=== PATIENT | male | born 1960 | race Caucasian/White ===

== ENCOUNTER 2017-07-29 00:18 | Inpatient (IN) | payer MEDICAID ==
[~2017-07-29] VITALS: Ht 177.8 cm; Wt 88.9 kg
[2017-07-29] VITALS (52 sets, daily range): BP systolic 91–202; BP diastolic 43–114
[~2017-07-29 00:18] MED LIST: ACET-868 PO; AMLO2.5T PO; BISA10SU8 RC; INSU100I19 SQ; INSU100V3 SQ; LEVO500T15 PO; LISI40TA4 PO; MAGN400O6 PO; METO25TA6 PO; VANC1VIA2 IV
--- NOTE | 2017-07-29 00:20 | NUR ---
TO BED 7 A A57 YO MALE PT BIBA#102 C/O SOB X 1 DAY, PT WAS GIVEN 5 SPRAYS OF NITRO FOR HIGH BP PSYCHIATRY ADULT PHYSICIAN. PATIENT IS AAOX4, 94% ON ROOM AIR, RR AT 24. KEPT HOB ELEVATED. PLACED ON CARDIAC AND VS MONITORING. GOWNED. COMFORT MEASURES RENDERED.
[2017-07-29] MEDS ORDERED: NITROGLYCERIN PACKET 1 GM PACKET TD ONE (00:30)
[2017-07-29] MEDS ORDERED: ENALAPRILAT DIHYD. (2.5MG/ML) 1.25 MG/ML VIAL IV ONE ×2 (00:30→00:40)
[2017-07-29] MEDS ORDERED: FUROSEMIDE 40 MG/4 ML VIAL IV ONE ×2 (00:30→05:30)
--- NOTE | 2017-07-29 00:35 | NUR ---
STARTED A SALINE LOCK ON THE LEFT HAND G20.
[2017-07-29] MEDS ORDERED: FUROSEMIDE 40 MG/4 ML VIAL ONE ×2 (00:40→05:04)
[2017-07-29] MEDS ORDERED: NITROGLYCERIN PACKET 1 GM PACKET ONE (00:40)
--- NOTE | 2017-07-29 00:45 | NUR ---
MEDICATED PATIENT ORDERED BY DR BOJORQUEZ.
[2017-07-29 01:11] LABS: BASOPHILS # (AUTO) 0.1 /CMM (0.0-0.2); BASOPHILS % (AUTO) 0.6 % (0.0-2.0); HEMATOCRIT 25 % (39-51); HEMOGLOBIN 8.1 g/dL (13.5-17.5); LYMPHOCYTES # (AUTO) 0.8 /CMM (0.8-4.8); LYMPHOCYTES % (AUTO) 5.6 % (20.0-44.0); MEAN CORPUSCULAR HEMOGLOBIN 29 PG (26.0-33.0); MEAN CORPUSCULAR HGB CONC 32 g/dl (31.0-36.0); MEAN CORPUSCULAR VOLUME 89 fL (80-96); MONOCYTES # (AUTO) 0.3 /CMM (0.1-1.30); MONOCYTES % (AUTO) 2.1 % (2.0-12.0); NEUTROPHILS # (AUTO) 12.8 /CMM (1.8-8.9); NEUTROPHILS % (AUTO) 91.7 % (43.0-81.0); PLATELET COUNT (AUTO) 490 /CMM (150-450); RDW COEFFICIENT OF VARIATION 14.5 (11.5-15.0); RED BLOOD CELL COUNT(AUTO) 2.83 MIL/uL (4.5-6.0); WHITE BLOOD COUNT (AUTO) 13.9 K/uL (4.3-11.0)
[2017-07-29 01:22] LABS: CALCIUM, SERUM 8.6 mg/dL (8.5-10.1)
[2017-07-29 01:28] LABS: INR 1.06 (0.87-1.13); PROTHROMBIN TIME 11.4 SECS (9.5-12.7)
[2017-07-29 01:29] LABS: TROPONIN I 0.358 ng/mL (0.00-0.056)
[2017-07-29 01:37] LABS: ALBUMIN 2.9 g/dL (3.4-5.0); BILIRUBIN,DIRECT 0.1 mg/dL (0.0-0.2); BILIRUBIN,TOTAL 0.4 mg/dL (0.2-1.0); TOTAL PROTEIN, SERUM 8.2 g/dL (6.4-8.2)
[2017-07-29] MEDS ORDERED: LEVOFLOXACIN 500 MG /D5W 100ML 500 MG/100 ML PIGGYBACK IV ONE (02:30)
[2017-07-29] MEDS ORDERED: LEVOFLOXACIN 500 MG /D5W 100ML 0 ML IV ONE (02:36)
[2017-07-29] MEDS ORDERED: VALS1TAB2 PO (02:46)
[2017-07-29] MEDS ORDERED: CLON0.3T PO (02:46)
[2017-07-29] MEDS ORDERED: ZOLP10TA6 PO (02:46)
[2017-07-29] MEDS ORDERED: INSU100I26 SQ (02:46)
[2017-07-29] MEDS ORDERED: GABA600T2 PO (02:46)
[2017-07-29] MEDS ORDERED: ASPIRIN 81 MG TAB.CHEW ONE (02:53)
[2017-07-29] MEDS ORDERED: ASPIRIN 81 MG TAB.CHEW PO ONE (03:00)
--- NOTE | 2017-07-29 03:36 | NUR ---
REPORT GIVEN TO [facility] FOR ROOM 313-2 ADMISSION AND JIMBO.
[2017-07-29 03:44] LABS: LYMPHOCYTES % (MANUAL) 4 % (16-48); MONOCYTES % (MANUAL) 3 % (0-11.0); NEUTROPHILS % (MANUAL) 93 (42-76)
--- NOTE | 2017-07-29 03:58 | NUR ---
TRANSFERRED PATIENT TO TELE BED 313 VIA ALS PROTOCOL, NO INCIDENT NOTED.
--- NOTE | 2017-07-29 04:00 | NUR ---
TELE/RETAIL CLIENT SOLUTIONS ANALYST ADMITTED 57 YEARS OLD MALE PT FROM ER VIA GURNEY ACCOMPANIED BY ER MALE STAFF AND ALSO WITH PT'S . DX; ACUTE RENAL FAILURE. PT AWAKE, ALERT AND ORIENTED AND SAID CAN NOT BREATH AND ANXIOUS. PT WITH O2 4L NC ON . PLACED ON TELEMETRY. COUGHING WITH WHITISH PHLEGM. NOTED WITH WOUND ON BACK OF BOTH FEET. BOTH FEET ARE ALSO SWOLLEN. CHARGE NURSE MADE AWARE PT IS ANXIOUS SO WITH THE AND KEPT SAYING CAN NOT BREATH. ALSO INFORMED BP IS HIGH 192/112, HR 112.
[2017-07-29] MEDS ORDERED: CLONIDINE HCL 0.1 MG TABLET PO PRN (04:30)
[2017-07-29] MEDS ORDERED: CLONIDINE HCL 0.1 MG TABLET ONE (04:34)
--- NOTE | 2017-07-29 04:45 | NUR ---
TELE/PRACTICE CLINICIAN; AT 0442 CATAPRES 0.1 MG PO Q6 PRN GIVEN.
--- NOTE | 2017-07-29 04:55 | NUR ---
TELE/ACCOUNTS RECEIVABLE EXECUTIVE; PLACED A CALL TO DR JALLOH PT IS C/O CAN NOT BREATH AND ANXIOUS. DR. JALLOH WITH ORDERS AND CARRIED OUT.
--- NOTE | 2017-07-29 05:05 | NUR ---
TELE/NURSERY RN; PLACED A CALL AGAIN TO DR. JALLOH IF PT BE TRANSFERRED TO [facility]. DR. JALLOH OK TO TRANSFER TO [facility] GARRY SARAH SOME ORDERS. CHARGE NURSE INFORMED THAT PPT BE TRANSFERRED TO [facility].
--- NOTE | 2017-07-29 05:08 | NUR ---
lasix 40 mg iv given at this time per md order
[2017-07-29] MEDS ORDERED: IPRATROPIUM NEB FS 0.5 MG/2.5 ML AMPUL.NEB ONE (05:25)
[2017-07-29] MEDS ORDERED: FUROSEMIDE 40 MG/4 ML VIAL IV SCH (05:30)
[2017-07-29] MEDS ORDERED: LEVALBUTEROL HCL NEB 1.25 MG/0.5 ML VIAL.NEB NEB PRN (05:30)
[2017-07-29] MEDS ORDERED: IPRATROPIUM NEB FS 0.5 MG/2.5 ML AMPUL.NEB NEB PRN (05:30)
--- NOTE | 2017-07-29 05:40 | NUR ---
PT TRANSFERRED TO [facility] BY BED. REPORTS GIVEN TO ARLEN WITH DR. YEIMI DUARTE. ALSO I INFORMED MADI MCKINLEY THAT I WAS NOT ABLE TO TAKE THE PHOTOS OF THE WOUND.
[2017-07-29] MEDS: CARVEDILOL 12.5 MG TABLET PO SCH ×3 (06:00→21:11)
[2017-07-29] MEDS ORDERED: AMLODIPINE BESYLATE 10 MG TABLET ONE (06:16)
[2017-07-29] MEDS ORDERED: ATORVASTATIN 10 MG TABLET ONE (06:16)
[2017-07-29] MEDS: ATORVASTATIN 10 MG TABLET PO SCH ×2 (06:17→21:11)
[2017-07-29] MEDS ORDERED: LEVOFLOXACIN 500 MG /D5W 100ML 100 ML IV ONE (06:26)
[2017-07-29] MEDS ORDERED: LEVOFLOXACIN 500 MG /D5W 100ML 500 MG in PREMIX 1 EA IV SCH (06:30)
[2017-07-29] MEDS ORDERED: AMLODIPINE BESYLATE 10 MG TABLET PO ONE (06:30)
[2017-07-29] MEDS ORDERED: DEXTROSE 50%-WATER 50 ML DISP.SYRIN IV PRN (06:30)
[2017-07-29] MEDS: INSULIN DETEMIR 100 UNIT/ML CARTRIDGE SQ SCH ×2 (06:30→21:17)
[2017-07-29] MEDS: TAMSULOSIN 0.4 MG CAP.SR.24H PO SCH ×2 (06:30→21:11)
[2017-07-29] MEDS ORDERED: ALPRAZOLAM 0.25 MG TABLET PO PRN (06:30)
[2017-07-29] MEDS ORDERED: HEPARIN SODIUM, PORCINE 5000 UNITS/1 ML VIAL SQ SCH (06:30)
[2017-07-29] MEDS: BLOOD SUGAR DIAGNOSTIC 1 EACH STRIP VI SCH ×4 (06:44→21:16)
--- NOTE | 2017-07-29 06:59 | NUR ---
RN NOTE; PT HOME MEDS TO RESUME, CLARIFIED WITH DR SCHEDULED FOR HS .
[2017-07-29 07:01] LABS: HEMATOCRIT 27 % (39-51); HEMOGLOBIN 8.9 g/dL (13.5-17.5); LYMPHOCYTES # (AUTO) 0.4 /CMM (0.8-4.8); LYMPHOCYTES % (AUTO) 2.6 % (20.0-44.0); MEAN CORPUSCULAR HEMOGLOBIN 29 PG (26.0-33.0); MEAN CORPUSCULAR HGB CONC 33 g/dl (31.0-36.0); MEAN CORPUSCULAR VOLUME 90 fL (80-96); MONOCYTES # (AUTO) 0.4 /CMM (0.1-1.30); MONOCYTES % (AUTO) 2.4 % (2.0-12.0); NEUTROPHILS # (AUTO) 14.3 /CMM (1.8-8.9); PLATELET COUNT (AUTO) 498 /CMM (150-450); RDW COEFFICIENT OF VARIATION 14.5 (11.5-15.0); RED BLOOD CELL COUNT(AUTO) 3.05 MIL/uL (4.5-6.0); WHITE BLOOD COUNT (AUTO) 15.1 K/uL (4.3-11.0)
[2017-07-29 07:37] LABS: CALCIUM, SERUM 8.6 mg/dL (8.5-10.1); CREATININE 6.2 mg/dL (0.6-1.3); POTASSIUM 5.2 mmol/L (3.5-5.1)
[2017-07-29 07:40] LABS: TROPONIN I 1.154 ng/mL (0.00-0.056)
--- NOTE | 2017-07-29 07:46 | NUR ---
maddie rn note patient in bed. c\o sob on nc 5l sat 94% . feels anxious. called rt for breathing tx , on tele monitor 112 with ortega cath to gravity with yellow color urine rt hand hl intact no s\s infection noted , bed in lowest and locked position , call light within reach , plan of care discussed with patient ,will cont to monitor closely at bedside ,
--- NOTE | 2017-07-29 08:00 | NUR ---
[facility] RN NOTE PATIENT IN BED , AT BEDSIDE. ON 5L NC SAT 94%. WITH LABORED RESPIRATION. KEEP HOB ELEVATED AT ALL TIME , ON TELE MONITOR SR 113. WITH DÍAZ CATH TO GRAVITY WITH YELLOW COLOR URINE , RT HAND HL INTACT,NO S]S INFECTION OR INFILTRATION NOTED , BED IN LOWEST AND LOCKED POSITION , CALL LIGHT WITHIN REACH , FEELS ANXIOUS AND RESTLESS , ALL NEEDS ATTENDED , CALL RT FOR BREATHING TX WILL CONT TO MONITOR CLOSELY
--- NOTE | 2017-07-29 08:11 | NUR ---
RN NOTE; A 57 YRS OLD MALE PT ADMITTED AND TRANSFERRED FROM [address] FLOOR WITH THE DX OF ACUTE RENAL FAILURE . PT IS A.O X 3, ANXIOUS , BREATHING LABORED ON 5 LPM VIA NC . O2 SATURATION 94 % . LH 20 G PERIPHERAL IV INTACT AND PATENT . BLADDER SCAN SHOWS 750 ML URINE RETAINING , COUDET CATHETER INSERTED PER DR JALLOH ORDER AND NOTICED URINE OUTPUT 900 ML. PT BP NOTICED HIGH , PRN MEDS GIVEN PER ORDER. FAMILY AT THE BED SIDE. SAFETY MEASURES APPLIED. DR JALLOH AWARE OF ALL LABS RESULT . ENDORSED TO NEXT SHIFT RN FOR CONTINUITY OF CARE.
[2017-07-29 08:13] LABS: ABG BASE EXCESS -10.5 mmol/L; ABG OXYGEN SATURATION 93.2 % (92.0-98.5); ABG PCO2 30.4 mmHg (35.0-45.0); ABG PH 7.305 (7.350-7.450); ABG PO2 71.3 mmHg (75.0-100.0); AaDO2 178.9 mmHg; COHb 0.6 % (0.5-1.5); MetHb 0.3 % (0.0-1.5); O2Hb 92.4 % (94.0-97.0); SITE, ABG Right Brachial; VENT MODE, BG NASAL CANNULA
[2017-07-29] MEDS ORDERED: BUMETANIDE INJ 4 MG in IV D5W 24 ML IV ONE (08:30)
[2017-07-29] MEDS ORDERED: NTG 50 MG/D5W250 ML BOTTL 250 ML IV PRN ×2 (08:30→10:00)
[2017-07-29] MEDS ORDERED: ALBUTEROL FS 2.5 MG/0.5 ML VIAL.NEB NEB PRN (08:30)
--- NOTE | 2017-07-29 08:30 | NUR ---
[facility] RN NOTE WITH LABORED RESPIRATION ABG DONE PER MD ORDER
--- NOTE | 2017-07-29 08:40 | NUR ---
[facility] RN NOTE STILL WITH LABORED RESPIRATION DR CODY AND DR SHARMA AT BEDSIDE NOTIFIED THAT BNP 45074 BUN 73 CREATINE 6.2 ALSO TROPNIN1.154 ,NOTIFIED TO DR SHARMA THAT PATIENT HAS CRACKLES UPON AUSCULTATION, CHEST RAY DONE WITH PULMONARY EDEMA , BP 202/114 ORDERED TO TRANSFER TO ICU WITH POSSIBLE BIPAP, ORDER CARRIED OUT
--- NOTE | 2017-07-29 08:45 | NUR ---
[facility] RN NOTE TRANSFERRED TO ICU ORDERED BY ACLS PROTOCOL ON ,REPORT GIVEN TO STAN BARRAZA
--- NOTE | 2017-07-29 08:45 | NUR ---
RN INITIAL NOTES RECEIVED PT FROM [facility] VIA BED. AWAKE, A/OX3-4. NOTED WITH SOB. DENIES ANY PAIN. PLACED COMFORTABLY IN THE ROOM. HOB ELEVATED. PLACED ON BIPAP ORDERED. PT CONNECTED TO BEDSIDE MONITOR. RH #[address] FLUSHED WITH NS. FC IN PLACE. NO HEMATURIA NOTED. DR. JALLOH AWARE OF TRANSFER. PT ORIENTED TO ROOM AND USE OF CALL LIGHT. AT BEDSIDE. AWAITING FOR ORDERS. WILL CLOSELY MONITOR.
[2017-07-29] MEDS: ASPIRIN EC 81 MG TABLET.DR PO SCH (08:48)
[2017-07-29] MEDS: AMLODIPINE BESYLATE 10 MG TABLET PO SCH (08:49)
[2017-07-29] MEDS: hydrALAZINE HCL 50 MG TABLET PO SCH ×3 (08:50→16:53)
[2017-07-29] MEDS: HEPARIN SODIUM, PORCINE 5000 UNITS/1 ML VIAL SQ SCH ×2 (08:52→21:12)
[2017-07-29] MEDS: CLONIDINE HCL 0.1 MG TABLET PO SCH ×2 (09:12→16:53)
[2017-07-29] MEDS: MEROPENEM 500 MG in IV NS 0.9% 50 ML IV SCH ×2 (09:12→16:52)
--- NOTE | 2017-07-29 11:27 | NUR ---
RN NOTES PT REFUSING BIPAP. WANTS TO TAKE IT OFF. RR 14, 02 SAT 98%. PT PLACED ON 02 AT 5LPM VIA NC. HOB ELEVATED. 02 SAT 96%. WILL MONITOR. DR. JALLOH AWARE.
[2017-07-29] MEDS ORDERED: ONDANSETRON HCL/PF 4 MG/2 ML VIAL IV PRN (12:00)
--- NOTE | 2017-07-29 13:45 | NUR ---
PT CONTINUES TO BE COMFORTABLE OFF BIPAP. ZERO DISTRESS NOTED ON LOW FLOW SUPPLEMENTAL OXYGEN
[2017-07-29] MEDS: GABAPENTIN 300 MG CAPSULE PO SCH (16:52)
[2017-07-29] MEDS: INSULIN REGULAR, HUMAN 100 UNIT/ML 3 ML VIAL SQ PRN (17:09)
--- NOTE | 2017-07-29 18:44 | NUR ---
RN CLOSING NOTES PT REMAINS STABLE. ON 02 AT 5LPM VIA NC. NO RESPIRATORY DISTRESS NOTED. DENIES SOB. DENIES ANY PAIN. BP WNL. IV LINES IN PLACE. FC IN PLACE. TX PROVIDED ORDERED. KEPT CLEAN AND DRY. ASSISTED ON REPOSITIONING. ALL NEEDS ATTENDED AND MET. CALL LIGHT WITHIN REACH. WILL ENDORSE FOR CONTINUITY OF CARE.
--- NOTE | 2017-07-29 20:38 | NUR ---
received pt from day shift, alert, follows commands, SR, SB, on 5L 02 sat well, lungs partially congested, BLLE pitting edema and cellulitis, tolerates diet, f/c good output, v/s stable, no pain, pt turned and repositioned.
[2017-07-29] MEDS ORDERED: INSULIN DETEMIR 100 UNIT/ML CARTRIDGE SQ SCH (22:00)
[2017-07-30] VITALS (41 sets, daily range): BP systolic 106–144; BP diastolic 40–79
--- NOTE | 2017-07-30 00:48 | NUR ---
pt is resting in the bed, v/s stable, no pain, pt turned and repositioned q2hrs.
[2017-07-30] MEDS: MEROPENEM 500 MG in IV NS 0.9% 50 ML IV SCH ×3 (00:57→16:51)
--- NOTE | 2017-07-30 04:17 | NUR ---
pt is resting in the bed, alert, follows commands, SR, v/s stable, no pain, pt cleaned, changed and repositioned q2hrs.
[2017-07-30 05:08] LABS: BASOPHILS % (AUTO) 0.1 % (0.0-2.0); HEMATOCRIT 21 % (39-51); LYMPHOCYTES # (AUTO) 0.7 /CMM (0.8-4.8); LYMPHOCYTES % (AUTO) 6.5 % (20.0-44.0); MEAN CORPUSCULAR HEMOGLOBIN 29 PG (26.0-33.0); MEAN CORPUSCULAR HGB CONC 32 g/dl (31.0-36.0); MEAN CORPUSCULAR VOLUME 91 fL (80-96); MONOCYTES # (AUTO) 0.9 /CMM (0.1-1.30); MONOCYTES % (AUTO) 7.8 % (2.0-12.0); NEUTROPHILS # (AUTO) 9.9 /CMM (1.8-8.9); NEUTROPHILS % (AUTO) 85.6 % (43.0-81.0); PLATELET COUNT (AUTO) 332 /CMM (150-450); RDW COEFFICIENT OF VARIATION 14.9 (11.5-15.0); RED BLOOD CELL COUNT(AUTO) 2.29 MIL/uL (4.5-6.0); WHITE BLOOD COUNT (AUTO) 11.5 K/uL (4.3-11.0)
[2017-07-30 05:16] LABS: HEMOGLOBIN 6.7 g/dL (13.5-17.5)
[2017-07-30 05:17] LABS: ALBUMIN 2.5 g/dL (3.4-5.0); BILIRUBIN,TOTAL 0.2 mg/dL (0.2-1.0); CALCIUM, SERUM 8.6 mg/dL (8.5-10.1); MAGNESIUM 2.1 mg/dL (1.8-2.4); POTASSIUM 5.5 mmol/L (3.5-5.1)
[2017-07-30 05:42] LABS: BAND % (MANUAL) 1 % (0.0-5.0); EOSINOPHILS % (MANUAL) 1 % (0-4); LYMPHOCYTES % (MANUAL) 6 % (16-48); MONOCYTES % (MANUAL) 3 % (0-11.0); NEUTROPHILS % (MANUAL) 89 (42-76); PHOSPHORUS 8.5 mg/dL (2.5-4.9)
[2017-07-30 05:44] LABS: TROPONIN I 4.157 ng/mL (0.00-0.056)
--- NOTE | 2017-07-30 05:50 | NUR ---
H/H 6.05/25 Dr Martin called
--- NOTE | 2017-07-30 06:25 | NUR ---
Second call for Dr Mratin
--- NOTE | 2017-07-30 07:30 | NUR ---
ICU/RN: Pt received in bed, eyes closed, easily aroused by name and touch, A&Ox3 with periods of forgetfulness, breathing even and unlabored on O2 5L/min via NC, skin is pale, generalized edema noted; cellulitis on bilat lower ext with wound on heels. Blood glucose check 113 mg/dl. Pt c/o poor appetite. FC draining clear yellow urine to gravity. Alarm sounds audible. Will cont to monitor pt.
[2017-07-30] MEDS: BLOOD SUGAR DIAGNOSTIC 1 EACH STRIP VI SCH ×4 (07:50→21:21)
--- NOTE | 2017-07-30 07:50 | NUR ---
ICU/RN: Dr Michel rounds; updated on pt status, troponin, and other abn labs. New orders noted and carried out.
[2017-07-30] MEDS: CARVEDILOL 12.5 MG TABLET PO SCH ×2 (08:13→21:21)
[2017-07-30] MEDS: hydrALAZINE HCL 50 MG TABLET PO SCH ×3 (08:13→17:00)
[2017-07-30] MEDS: AMLODIPINE BESYLATE 10 MG TABLET PO SCH (08:13)
[2017-07-30] MEDS: ASPIRIN EC 81 MG TABLET.DR PO SCH (08:13)
[2017-07-30] MEDS: GABAPENTIN 300 MG CAPSULE PO SCH ×2 (08:13→16:51)
[2017-07-30] MEDS: CLONIDINE HCL 0.1 MG TABLET PO SCH ×2 (08:14→16:50)
[2017-07-30] MEDS: HEPARIN SODIUM, PORCINE 5000 UNITS/1 ML VIAL SQ SCH ×3 (08:17→21:23)
--- NOTE | 2017-07-30 08:45 | NUR ---
ICU/RN: Dr Martin at bedside; discussed abn labs, troponins, urine output, respiratory status, poor po intake and respiratory status with MD. New orders noted and carried out. Per MD "Go ahead and give the heparin, there is no active bleed. Administer Lasix after giving the 1st unit of blood." Pt updated on POC, agreeable and verbalized understanding.
--- NOTE | 2017-07-30 09:00 | NUR ---
ICU/RN: Dr Longoria at bedside; updated on pt status. Pt off bipap since yesterday; currently on 2L/Min O2 via NC with SpO2 98-100% at rest.
--- NOTE | 2017-07-30 09:25 | NUR ---
WOUND CARE CONSULT: PT PRESENTS WITH BILATERAL FOOT ULCERS, PRESENT ON ADMISSION. RECOMMENDATIONS MADE FOR WOUND CARE AND SKIN PROTECTION. RECOMMEND PODIATRY CONSULT. DISCUSSED WITH NURSING STAFF. CURRENT OPAL SCORE IS 18. PT ON COMFORT GEL MATTRESS. ALL SKIN PROTECTION MEASURES IN PLACE. WILL SEE PRN. DESIR IN AGREEMENT WITH PLAN OF CARE. Addendum: 07/30/17 at 0926 by PERCY CHAMPION WNDNU Amended: Links added.
[2017-07-30] MEDS: Z GUARD REMEDY 2 OZ OINT TP SCH (09:50)
[2017-07-30] MEDS: FUROSEMIDE 40 MG/4 ML VIAL IV SCH ×2 (11:12→16:51)
[2017-07-30] MEDS: CADEXOMER IODINE 40 GM TUBE TP SCH (11:13)
[2017-07-30 12:02] LABS: HEMOGLOBIN 7.5 g/dL (13.5-17.5)
--- NOTE | 2017-07-30 13:00 | NUR ---
ICU/RN: Pt with refusing lunch earlier. Educated. Now agreed to small sips of juice and water with PO meds.
[2017-07-30] MEDS: SEVELAMER CARBONATE 800 MG TABLET PO SCH ×2 (13:07→18:00)
[2017-07-30] MEDS: ACETAMINOPHEN 325 MG TABLET PO PRN (15:03)
--- NOTE | 2017-07-30 15:30 | NUR ---
ICU/RN: Pt c/o lower back pain 03/14 requesting tylenol. Offered to turn and reposition for comfort and wound prevention, pt strongly refuses and states "No, I want to lay on my back only." Pt at risk for skin breakdown. Per , pt uses air mattress at home. Applied KCI mattress.
[2017-07-30 16:46] LABS: APPEARANCE,URINE CLEAR (CLEAR); BILIRUBIN,URINE NEGATIVE (NEGATIVE); BLOOD, URINE 3+ Ery/uL (NEGATIVE); COLOR,URINE YELLOW (YELLOW); CREATININE, URINE 97.9 MG/DL (30.0-125.0); KETONES,URINE NEGATIVE (NEGATIVE); LEUKOCYTE ESTERASE ,URINE NEGATIVE (NEGATIVE); NITRITE, URINE NEGATIVE (NEGATIVE); PROTEIN,URINE 2+ mg/dl (NEGATIVE); UGLUCOSE NEGATIVE (NEGATIVE); URINE TOTAL PROTEIN 279.4 mg/dL (0-11.9); UROBILINOGEN,URINE 0.2 EU/dL (0.2)
--- NOTE | 2017-07-30 18:14 | NUR ---
ICU/RN: Pt refusing to eat dinner, take po meds despite education. States "leave me alone, that's enough for now. Let me sleep."
--- NOTE | 2017-07-30 19:05 | NUR ---
ICU/RN: Pt resting in bed eyes closed, responds to name and light touch. Refuses turning and dinner at this time. Tolerating O2 at 2L/min via NC. VS WNL. No distress noted. FC draining to gravity. Care endorsed to PM RN for JIMBO.
--- NOTE | 2017-07-30 19:37 | NUR ---
PAYROLL MASTER NOTES RECEIVED PT IN BED, SLEEPING. A/O X2-3 WITH OCCASIONAL CONFUSION. TELE READS SR AT 64 BPM. ON NC AT 2 LPM, LIANE WELL. DÍAZ CATH PRESENT, WITH SMALL AMOUNT OF URINE OUTPUT, APPROX 20 ML SINCE 1800. SAÚL MIDLINE, LEFT HAND 20G AND R AC 20G IVs PRESENT, ALL SALINE LOCKED. ON KCI MATTRESS, PT REFUSING TO BE TURNED AND REPOSITIONED. BLE CELLULITIS AND DM ULCERS PRESENT. CALL LIGHT WITHIN REACH, ALL NEEDS MET.
[2017-07-30] MEDS: TAMSULOSIN 0.4 MG CAP.SR.24H PO SCH (21:21)
[2017-07-30] MEDS: ATORVASTATIN 10 MG TABLET PO SCH (21:21)
[2017-07-30] MEDS: INSULIN DETEMIR 100 UNIT/ML CARTRIDGE SQ SCH (21:21)
--- NOTE | 2017-07-30 21:29 | NUR ---
SENSOR OPERATOR NOTES PT BLOOD GLUCOSE OF 134 MG/DL. DID NOT ADMINISTER LEVEMIR AND REGULAR INSULIN DUE TO THE FACT THAT THE PATIENT HAS NOT BEEN EATING.
[2017-07-30 22:18] LABS: BACTERIA,URINE Few /HPF (None Seen); SQUAMOUS EPITHELIAL CELL,UR Few /HPF (None Seen); WBC,URINE 0-2 /HPF (0-3)
[2017-07-30 22:19] LABS: EOSINOPHIL,URINE None Seen
[2017-07-31] VITALS (39 sets, daily range): BP systolic 100–144; BP diastolic 54–82
[2017-07-31] MEDS: MEROPENEM 500 MG in IV NS 0.9% 50 ML IV SCH ×3 (00:21→16:39)
--- NOTE | 2017-07-31 00:41 | NUR ---
HOTEL VALET ATTENDANT NOTES PT IS ASLEEP, EASILY AROUSABLE. HAS BEEN REFUSING TO BE TURNED AND REPOSITIONED THROUGHOUT THE NIGHT. EDUCATION PROVIDED REGARDING SKIN CARE BUT PT CONTINUES TO REFUSE. REFUSES BED BATH AND LINEN CHANGE UNLESS THE LINENS ARE SOILED.
[2017-07-31 04:53] LABS: BASOPHILS % (AUTO) 0.1 % (0.0-2.0); HEMATOCRIT 26 % (39-51); HEMOGLOBIN 8.4 g/dL (13.5-17.5); LYMPHOCYTES # (AUTO) 1.1 /CMM (0.8-4.8); LYMPHOCYTES % (AUTO) 7.7 % (20.0-44.0); MEAN CORPUSCULAR HEMOGLOBIN 29 PG (26.0-33.0); MEAN CORPUSCULAR HGB CONC 33 g/dl (31.0-36.0); MEAN CORPUSCULAR VOLUME 90 fL (80-96); MONOCYTES % (AUTO) 7.7 % (2.0-12.0); NEUTROPHILS # (AUTO) 11.6 /CMM (1.8-8.9); NEUTROPHILS % (AUTO) 84.5 % (43.0-81.0); PLATELET COUNT (AUTO) 338 /CMM (150-450); RDW COEFFICIENT OF VARIATION 14.9 (11.5-15.0); RED BLOOD CELL COUNT(AUTO) 2.88 MIL/uL (4.5-6.0); WHITE BLOOD COUNT (AUTO) 13.7 K/uL (4.3-11.0)
[2017-07-31 05:33] LABS: ALBUMIN 2.3 g/dL (3.4-5.0); BILIRUBIN,TOTAL 0.3 mg/dL (0.2-1.0); CALCIUM, SERUM 7.9 mg/dL (8.5-10.1); MAGNESIUM 2.2 mg/dL (1.8-2.4); POTASSIUM 5.6 mmol/L (3.5-5.1); TOTAL PROTEIN, SERUM 6.2 g/dL (6.4-8.2)
--- NOTE | 2017-07-31 05:38 | NUR ---
IC DESIGNER GATE ARRAYS NOTES PT CONTINUES TO REFUSES TURNING AND BED BATH. ALL NEEDS MET. CALL LIGHT WITHIN REACH.
[2017-07-31 06:00] LABS: TROPONIN I 2.594 ng/mL (0.00-0.056)
[2017-07-31 06:01] LABS: CREATININE 7.7 mg/dL (0.6-1.3); PHOSPHORUS 8.8 mg/dL (2.5-4.9)
--- NOTE | 2017-07-31 07:30 | NUR ---
RN NOTES RECEIVED PT RESTING IN BED, ASLEEP AT THIS TIME. EASILY AROUSABLE TO VERBAL AND TACTILE STIMULI. ALERT ORIENTED 1-2 WITH PERIODS OF FORGETFULNESS. PT ABLE TO COMMUNICATE SIMPLE NEEDS. ON O2@2LPM VIA NC, NO DISTRESS NOTED. VS CONTINUOUSLY MONITORED. REFUSED TO BE REPOSITIONED, RISKS AND BENEFITS EXPLAINED PT STILL REFUSED. BLE NOTED WITH EDEMA, DRESSING INTACT AND IN PLACE. FC DRAINING TO GRAVITY WITH 50 ML YELLOW COLOR URINE NOTED. SAFETY MAINTAINED, REMINDED TO USE CALL LIGHT WHEN ASSISTANCE IS NEED. CALL LIGHT WITHIN REACH, WILL CONT TO MONITOR
[2017-07-31 08:13] LABS: *SPE A/G RATIO 0.8 (0.7-1.7); *SPE ALBUMIN 2.9 g/dL (2.9-4.4); *SPE ALPHA-1-GLOBULIN 0.3 g/dL (0.0-0.4); *SPE BETA GLOBULIN 0.9 g/dL (0.7-1.3); *SPE GLOBULIN, TOTAL 3.6 g/dL (2.2-3.9); *SPE M-SPIKE Not Observed g/dL (Not Observed); *SPE PROTEIN TOTAL 6.5 g/dL (6.0-8.5); *SPEGAMMA GLOBULIN 1.4 g/dL (0.4-1.8)
[2017-07-31] MEDS: FUROSEMIDE 40 MG/4 ML VIAL IV SCH ×2 (08:38→16:40)
[2017-07-31] MEDS: Z GUARD REMEDY 2 OZ OINT TP SCH (08:38)
[2017-07-31] MEDS: BLOOD SUGAR DIAGNOSTIC 1 EACH STRIP VI SCH ×4 (08:38→23:09)
[2017-07-31] MEDS: SEVELAMER CARBONATE 800 MG TABLET PO SCH ×3 (08:38→18:00)
[2017-07-31] MEDS: GABAPENTIN 300 MG CAPSULE PO SCH ×2 (08:38→16:39)
[2017-07-31] MEDS: CARVEDILOL 12.5 MG TABLET PO SCH ×2 (08:39→21:00)
[2017-07-31] MEDS: ASPIRIN EC 81 MG TABLET.DR PO SCH (08:39)
[2017-07-31] MEDS: CLONIDINE HCL 0.1 MG TABLET PO SCH ×2 (08:39→18:00)
[2017-07-31] MEDS: hydrALAZINE HCL 50 MG TABLET PO SCH ×3 (08:40→17:10)
[2017-07-31] MEDS: CADEXOMER IODINE 40 GM TUBE TP SCH (08:42)
[2017-07-31] MEDS: INSULIN REGULAR, HUMAN 100 UNIT/ML 3 ML VIAL SQ PRN ×2 (08:43→12:18)
[2017-07-31] MEDS: HEPARIN SODIUM, PORCINE 5000 UNITS/1 ML VIAL SQ SCH ×2 (08:44→22:55)
[2017-07-31] MEDS: AMLODIPINE BESYLATE 10 MG TABLET PO SCH (08:47)
--- NOTE | 2017-07-31 09:00 | NUR ---
RN NOTES PT REFUSED BREAKFAST, OFFERED ASSISTANCE, PT SAID HE JUST WANTS JUICE.
[2017-07-31 10:29] LABS: ABG BASE EXCESS -9.5 mmol/L; ABG PCO2 29.5 mmHg (35.0-45.0); ABG PH 7.332 (7.350-7.450); ABG PO2 108.3 mmHg (75.0-100.0); AaDO2 56.5 mmHg; COHb 0.1 % (0.5-1.5); MetHb 0.6 % (0.0-1.5); O2Hb 96.3 % (94.0-97.0); SITE, ABG Right Radial; VENT MODE, BG N/C
--- NOTE | 2017-07-31 10:33 | NUR ---
RN NOTES DR ORR INFORMED OF ABG RESULT, NO NEW ORDERS MADE. VS STABLE, PT NOT ON ANY RESP DISTRESS
--- NOTE | 2017-07-31 11:28 | NUR ---
RN NOTES DR JALLOH AT BEDSIDE, PT WAS SEEN AND EVALUATED. ALL CURRENT EVENTS REPORTED, CRITICAL LABS REPORTED TO MD. NO NEW ORDER GIVEN AT THIS TIME, PER DR JALLOH PT STABLE TO BE DOWNGRADE TO TELEMETRY. MAY NEED HD SOON. AT BEDSIDE.
[2017-07-31 13:14] LABS: PTH, INTACT 155 pg/mL (15-65)
--- NOTE | 2017-07-31 18:05 | NUR ---
RN NOTES PT TRANSFERRED TO [facility], TRANSPORTED VIA BED ACCOMPANIED BY RN AND NETWORK SERVICES PROJECT MANAGER. REPORT GIVEN TO PERCY BARRAZA FOR CONTINUITY OF CARE. NO ACUTE DISTRESS NOTED, NO CHANGE IN CONDITION.
--- NOTE | 2017-07-31 18:30 | NUR ---
RN NOTES PATIENT AWAKE ALERT AND VERBALLY RESPONSIVE AND ABLE TO MAKE NEEDS KNOWN. RESPIRATIONS EVEN AND UNLABORED, DENIES ANY PAIN OR DISCOMFORT AT THIS TIME. PT ABLE TO MAKE NEEDS KNOWN AND BE ORIENTED NEEDED. IV ACCESS PATENT AND INTACT NO REDNESS OR INFILTRATION AT THIS TIME, KEPT CLEAN DRY AND COMFORTABLE, CALL LIGHT WITHIN EASY REACH, WILL CONTINUE TO MONITOR AND ENDORSE TO NEXT SHIFT FOR CONTINUITY OF CARE
--- NOTE | 2017-07-31 19:40 | NUR ---
RN OPENING NOTES RECEIVED REPORT FROM DAYSNDFT RNFLACO. FOUND Pt AWAKE, RESTING IN BED. NO S/S OF ACUTE DISTRESS OR SOB NOTED. NO C/O PAIN AT THIS TIME. Pt IS A/OX1-2, VERBAL, AND ABLE TO MAKE NEEDS KNOWN. IV ACCESS ON SAÚL #18G SL, & RAC #20G SL. SAFETY MEASURES IN PLACE. BED LOW, LOCKED, HOB ELEVATED, SIDE RAILS UPS, CALL LIGHT AND BEDSIDE TABLE WITHIN REACH. WILL CONTINUE TO MONITOR Pt THROUGHOUT THE NIGHT FOR SAFETY.
--- NOTE | 2017-07-31 22:00 | NUR ---
HS ACCUCHECK BG 143. ADMINISTERED SCHEDULED LEVEMIR. DID NOT GIVE ADDITIONAL COVERAGE PER Pt's STATEMENT THAT HIS BLOOD SUGAR TENDS TO RUN LOW IN THE MORNING. WILL CONTINUE TO MONITOR Pt'S BG LEVELS.
[2017-07-31] MEDS: TAMSULOSIN 0.4 MG CAP.SR.24H PO SCH (22:53)
[2017-07-31] MEDS: ATORVASTATIN 10 MG TABLET PO SCH (22:53)
[2017-07-31] MEDS: INSULIN DETEMIR 100 UNIT/ML CARTRIDGE SQ SCH (23:15)
[2017-08-01] VITALS (7 sets, daily range): BP systolic 124–168; BP diastolic 66–85
[2017-08-01] MEDS: MEROPENEM 500 MG in IV NS 0.9% 50 ML IV SCH ×3 (01:02→21:12)
--- NOTE | 2017-08-01 06:30 | NUR ---
HS ACCUCHECK BG 122. NO INSULIN COVERAGE NEEDED AT THIS TIME.
--- NOTE | 2017-08-01 06:38 | NUR ---
RN CLOSING NOTES NO SIGNIFICANT CHANGES NOTED DURING THE NIGHT. NO S/S OF ACUTE DISTRESS OR SEVERE SOB NOTED DURING THE NIGHT. ALL NEEDS MET AND ATTENDED TO. SAFETY MEASURES IN PLACE. WILL ENDORSE TO DAYSHIFT RN FOR Pt's JIMBO. TELE READING SR 69
[2017-08-01] MEDS: BLOOD SUGAR DIAGNOSTIC 1 EACH STRIP VI SCH ×4 (07:43→22:21)
[2017-08-01 07:49] LABS: POTASSIUM 5.1 mmol/L (3.5-5.1)
[2017-08-01 07:50] LABS: CREATININE 8.1 mg/dL (0.6-1.3); EOSINOPHILS # (AUTO) 0.2 /CMM (0.0-0.7); EOSINOPHILS % (AUTO) 1.1 % (0.0-6.0); HEMATOCRIT 29 % (39-51); HEMOGLOBIN 9.5 g/dL (13.5-17.5); LYMPHOCYTES # (AUTO) 1.3 /CMM (0.8-4.8); LYMPHOCYTES % (AUTO) 7.8 % (20.0-44.0); MEAN CORPUSCULAR HEMOGLOBIN 30 PG (26.0-33.0); MEAN CORPUSCULAR HGB CONC 33 g/dl (31.0-36.0); MEAN CORPUSCULAR VOLUME 90 fL (80-96); MONOCYTES # (AUTO) 1.3 /CMM (0.1-1.30); MONOCYTES % (AUTO) 8.3 % (2.0-12.0); NEUTROPHILS # (AUTO) 13.3 /CMM (1.8-8.9); NEUTROPHILS % (AUTO) 82.8 % (43.0-81.0); PLATELET COUNT (AUTO) 343 /CMM (150-450); RDW COEFFICIENT OF VARIATION 14.8 (11.5-15.0); RED BLOOD CELL COUNT(AUTO) 3.19 MIL/uL (4.5-6.0); WHITE BLOOD COUNT (AUTO) 16.1 K/uL (4.3-11.0)
--- NOTE | 2017-08-01 08:30 | NUR ---
ms rn received on bed, awake,alert,oriented x2-3,not in any form of distress, respiration even and unlabored,no sob noted,lungs are diminished, abdomen soft,positive bowel sounds, denies pain at this time, all needs attended.
--- NOTE | 2017-08-01 09:20 | NUR ---
ms rn breakfast served,due meds given,tolerated well.was seen by dr kellen beaulieu/ orders made and carried out.
[2017-08-01] MEDS: SEVELAMER CARBONATE 800 MG TABLET PO SCH ×3 (09:53→17:52)
[2017-08-01] MEDS: GABAPENTIN 300 MG CAPSULE PO SCH ×2 (09:53→17:52)
[2017-08-01] MEDS: ASPIRIN EC 81 MG TABLET.DR PO SCH (09:53)
[2017-08-01] MEDS: FUROSEMIDE 40 MG/4 ML VIAL IV SCH ×2 (09:53→17:53)
[2017-08-01] MEDS: hydrALAZINE HCL 50 MG TABLET PO SCH ×3 (09:54→17:00)
[2017-08-01] MEDS: CARVEDILOL 12.5 MG TABLET PO SCH ×2 (09:54→21:13)
[2017-08-01] MEDS: AMLODIPINE BESYLATE 10 MG TABLET PO SCH (09:55)
[2017-08-01] MEDS: CLONIDINE HCL 0.1 MG TABLET PO SCH ×2 (09:55→17:00)
[2017-08-01] MEDS: Z GUARD REMEDY 2 OZ OINT TP SCH (09:56)
[2017-08-01] MEDS: CADEXOMER IODINE 40 GM TUBE TP SCH (09:56)
[2017-08-01] MEDS: HEPARIN SODIUM, PORCINE 5000 UNITS/1 ML VIAL SQ SCH ×2 (09:57→21:18)
--- NOTE | 2017-08-01 16:00 | NUR ---
ms cerner analyst catheter inserted by dr. raya, notified, ok to use for hd now, amet hd nurse notified.
--- NOTE | 2017-08-01 18:44 | NUR ---
ms rn hd on going,tolerated well, held b/p meds at this time.
--- NOTE | 2017-08-01 18:45 | NUR ---
ms gottlieb bs - 145 - 2 units regular insulin given.
[2017-08-01] MEDS: *INSULIN REGULAR(HUMULIN R)HUM 100 UNIT/ML VIAL SQ PRN ×2 (18:52→22:23)
--- NOTE | 2017-08-01 19:45 | NUR ---
RN INITIAL NOTES: RECEIVED REPORT FROM NANETTE BARRAZA, PT IN BED, AWAKE, A/O X1-2 ONGOING HD AT THIS TIME, S/P HD CATH PLACEMENT BY DR MACK 08/01/17 AND [facility]ANG INITIAL HD STARTED. RIGHT GROIN LATIA CATH IN PLACED. DRESSING C/D/I. SAÚL MIDLINE IN PLACED, PATENT AND FLUSHING WELL, INFUSING WITH NS AT TKO. PT HAS DÍAZ CATHETER IN PLACED, DRAINING INTO YELLOW COLORED URINE. SAFETY PRECAUTIONS FOR FALL INITIATED CALL LIGHT IN REACH, WILL CONTINUE TO MONITOR
--- NOTE | 2017-08-01 20:00 | NUR ---
RN NOTES: HD COMPLETED AT THIS TIME, WITH 1L OUTPUT. PER HD RN PT WILL HAVE ANOTHER HD TOMORROW
[2017-08-01] MEDS: TAMSULOSIN 0.4 MG CAP.SR.24H PO SCH (21:13)
[2017-08-01] MEDS: ATORVASTATIN 10 MG TABLET PO SCH (21:13)
[2017-08-01] MEDS: INSULIN DETEMIR 100 UNIT/ML CARTRIDGE SQ SCH (21:21)
--- NOTE | 2017-08-01 21:21 | NUR ---
NON ADMINISTRATION OF LEVEMIR: PT'S BLOOD SUGAR IS 126, PT REFUSING TO EAT, ONLY ATE 30% OF HIS DINNER TRAY HIS DINNER TRAY STILL AT BED SIDE, STATED HE'S FEELING TIRED FROM HD. LEVEMIR NOT GIVEN FOR POSSIBLE RISK OF HYPOGLYCEMIA.
--- NOTE | 2017-08-01 22:24 | NUR ---
ACCU CHECK: PT DECIDED TO RECEIVED REGULAR INSULIN, BS 138, 2UNITS OF REGULAR INSULIN GIVEN PER SLIDING SCALE, BUT PT DOESNT WANT TO GET THE LEVEMIR HE STATED HE'S OKAY WITH THE REGULAR INSULIN, EDUCATION PROVIDED TO THE PT, WILL MONITOR PT FOR ANY S/S OF HYPOGLYCEMIA
[2017-08-02] MEDS: BLOOD SUGAR DIAGNOSTIC 1 EACH STRIP VI SCH ×4 (06:29→21:32)
[2017-08-02] MEDS: INSULIN REGULAR, HUMAN 100 UNIT/ML 3 ML VIAL SQ PRN ×2 (06:33→13:30)
--- NOTE | 2017-08-02 06:33 | NUR ---
ACCU CHECK: BLOOD SUGAR CHECK AND REVEAL 152, 2UNITS OF INSULIN GIVEN PER SLIDING SCALE,
--- NOTE | 2017-08-02 06:51 | NUR ---
RN CLOSING NOTES: PT IN BED, AWAKE, REMAINS A/O X2, ON 2L VIA NC RESPIRATION EVEN AND UNLABORED, SAÚL MIDLINE REMAINS PATENT AND FLUSHING WELL, INFUSING WITH NS AT TKO. DÍAZ CATHETER REMAINS IN PLACED. RIGHT GROIN LATIA CATH REMAINS IN PLACED, DRESSING C/D/I. BLE KEPT OFFLOADED. VS REMAINS STABLE, NEEDS ATTENDED. SAFETY PRECAUTIONS FOR FALL REMAINS ENGAGED, CALL LIGHT IN REACH, WILL ENDORSE TO DAY RN FOR JIMBO.
[2017-08-02 07:29] LABS: BASOPHILS % (AUTO) 0.2 % (0.0-2.0); EOSINOPHILS # (AUTO) 0.4 /CMM (0.0-0.7); EOSINOPHILS % (AUTO) 3.1 % (0.0-6.0); HEMATOCRIT 29 % (39-51); HEMOGLOBIN 9.6 g/dL (13.5-17.5); LYMPHOCYTES # (AUTO) 0.9 /CMM (0.8-4.8); LYMPHOCYTES % (AUTO) 7.3 % (20.0-44.0); MEAN CORPUSCULAR HEMOGLOBIN 30 PG (26.0-33.0); MEAN CORPUSCULAR HGB CONC 33 g/dl (31.0-36.0); MEAN CORPUSCULAR VOLUME 89 fL (80-96); MONOCYTES # (AUTO) 1.1 /CMM (0.1-1.30); MONOCYTES % (AUTO) 8.3 % (2.0-12.0); NEUTROPHILS # (AUTO) 10.5 /CMM (1.8-8.9); NEUTROPHILS % (AUTO) 81.1 % (43.0-81.0); PLATELET COUNT (AUTO) 295 /CMM (150-450); RDW COEFFICIENT OF VARIATION 14.4 (11.5-15.0); RED BLOOD CELL COUNT(AUTO) 3.26 MIL/uL (4.5-6.0)
--- NOTE | 2017-08-02 07:35 | NUR ---
RN OPENING NOTES RECEIVED PATIENT RESTING IN BED WITH HOB ELEVATED. PATIENT AOX2. PATIENT DENIES PAIN, SOB, AND CP. NO ACUTE DISTRESS NOTED. RESPIRATION SEVEN AND UNLABORED. ON 2L NC SATURATING ADEQUATELY AT 98% O2. BILATERAL LEG EDEMA NOTED. F/C IN PLACE DRAINING CLEAR YELLOW URINE. PATIENT ANTICIPATED TO HAVE HD TODAY. SAÚL MIDLINE NS RUNING TKO. SITE PATENT AND INTACT. RAC 20 G H/L. IV PATENT AND INTACT NO INFILTRATION NOTED. R GROIN LATIA CATH CLEAN DRY AND INTACT. BED LOCKED IN THE LOWEST POSITION WITH SIDE RAILS UP X2. CALL LIGHT WITHIN REACH. WILL CONTINUE TO MONITOR, ASSESS AND EDUCATE PATIENT THROUGHOUT SHIFT.
[2017-08-02 08:00] VITALS: BP 150/74
[2017-08-02 08:05] LABS: CALCIUM, SERUM 7.8 mg/dL (8.5-10.1); CREATININE 6.5 mg/dL (0.6-1.3); POTASSIUM 4.6 mmol/L (3.5-5.1)
[2017-08-02] MEDS: CARVEDILOL 12.5 MG TABLET PO SCH ×2 (09:59→21:16)
[2017-08-02] MEDS: AMLODIPINE BESYLATE 10 MG TABLET PO SCH (09:59)
[2017-08-02] MEDS: ASPIRIN EC 81 MG TABLET.DR PO SCH (09:59)
[2017-08-02] MEDS: FUROSEMIDE 40 MG/4 ML VIAL IV SCH ×2 (10:00→18:27)
[2017-08-02] MEDS: SEVELAMER CARBONATE 800 MG TABLET PO SCH ×3 (10:00→18:27)
[2017-08-02] MEDS: GABAPENTIN 300 MG CAPSULE PO SCH ×2 (10:00→18:27)
[2017-08-02] MEDS: CLONIDINE HCL 0.1 MG TABLET PO SCH ×2 (10:00→17:00)
[2017-08-02] MEDS: hydrALAZINE HCL 50 MG TABLET PO SCH ×3 (10:01→17:00)
[2017-08-02] MEDS: HEPARIN SODIUM, PORCINE 5000 UNITS/1 ML VIAL SQ SCH ×2 (10:04→21:16)
[2017-08-02] MEDS: MEROPENEM 500 MG in IV NS 0.9% 50 ML IV SCH ×2 (10:04→21:15)
[2017-08-02] MEDS: Z GUARD REMEDY 2 OZ OINT TP SCH (10:06)
[2017-08-02] MEDS: CADEXOMER IODINE 40 GM TUBE TP SCH (10:06)
--- NOTE | 2017-08-02 13:20 | NUR ---
RN NON ADMIN NOTES HELD HYDRALAZINE. PATIENT BP 106/58HR 57
--- NOTE | 2017-08-02 14:56 | NUR ---
RN NOTES HD RN AT THE BEDSIDE FOR HD.
[2017-08-02 16:00] VITALS: BP 109/64
--- NOTE | 2017-08-02 17:00 | NUR ---
RN NON ADMIN NOTES 1700 BP MEDS HELD. PATIENT BP 106/52. LASIX GIVEN. WILL CONTINUE TO MONITOR.
--- NOTE | 2017-08-02 19:40 | NUR ---
RN CLOSING NOTES PATIENT IN STABLE CONDITION. 1.5 L REMOVED. PATIENT BP 120/74 HR 66. PATIENT TOLERATED HD WELL. PATIENT RESTING COMFORTABLY IN BED. PATIENT IN STABLE CONDITION. PATIENT CONDITION REMAINS UNCHANGED. F/C IN PLACE DRAINING YELLOW URINE. 550ML DRAINED DURING SHIFT. PATIENT DENIES CP, SOB. NO ACUTE DISTRESS. RESPIRATIONS EVEN AN UNLABORED. PATIENT SATURATING ADEQUATELY ON 2L. BED LOCKED IN THE LOWEST POSITION WITH SIDE RAILS UP X2. PATIENT ABLE TO VERBALIZE NEEDS. ALL NEEDS MET. ALL MEDS GIVEN APPROPRIATE. WILL ENDORSE TO NIGHT RN FOR CONTINUATION.
--- NOTE | 2017-08-02 19:45 | NUR ---
HEATER ENGINEER HELPER NOTE RECEIVED PATIENT FROM DAY SHIFT, PATIENT IS ALERT AND ORIENTEDX2, COMPLETED HD 1.5L OUTPUT, RESTING IN BED COMFORTABLY, DENIES RESPIRATORY DISTRESS OR PAIN AT THIS TIME. IV ON RIGHT AC IS AND RIGHT MID LINE IS PATENT AND INTACT, HL ONLY. SRX2, BED IN LOW POSITION, CALL LIGHT WITHIN REACH, WILL CONTINUE TO MONITOR PATIENT.
[2017-08-02 20:00] VITALS: BP 140/71
[2017-08-02] MEDS: TAMSULOSIN 0.4 MG CAP.SR.24H PO SCH (21:29)
[2017-08-02] MEDS: ATORVASTATIN 10 MG TABLET PO SCH (21:29)
[2017-08-02] MEDS: INSULIN DETEMIR 100 UNIT/ML CARTRIDGE SQ SCH (21:34)
[2017-08-02] MEDS: *INSULIN REGULAR(HUMULIN R)HUM 100 UNIT/ML VIAL SQ PRN (21:34)
--- NOTE | 2017-08-02 21:45 | NUR ---
MS RN NOTE PATIENT'S BS IS 154MG/DL, ONLY 2 UNITS OF REGULAR INSULIN COVERED. HELD 16 UNITS OF LEVEMIR AT THIS TIME. WILL REASSESS HIS BS IN THE MORNING.
[2017-08-03 04:00] VITALS: BP 137/73
--- NOTE | 2017-08-03 06:00 | NUR ---
MS RN NOTE BS IN AM WAS 126MG/DL, NO INSULIN COVERAGE.
[2017-08-03] MEDS: BLOOD SUGAR DIAGNOSTIC 1 EACH STRIP VI SCH ×4 (06:06→21:49)
--- NOTE | 2017-08-03 06:52 | NUR ---
MS RN NOTE PATIENT IS RESTING IN BED COMFORTABLY, NO ACUTE DISTRESS NOTED THROUGHOUT THE SHIFT. RIGHT UPPER ARM MID LINE AND IV ACCESS IS PATENT AND INTACT, HL ONLY. WILL ENDORSE TO DAY SHIFT NURSE FOR JIMBO.
[2017-08-03 07:23] LABS: BASOPHILS # (AUTO) 0.1 /CMM (0.0-0.2); BASOPHILS % (AUTO) 0.5 % (0.0-2.0); EOSINOPHILS # (AUTO) 0.8 /CMM (0.0-0.7); EOSINOPHILS % (AUTO) 6.7 % (0.0-6.0); HEMATOCRIT 30 % (39-51); HEMOGLOBIN 9.8 g/dL (13.5-17.5); LYMPHOCYTES # (AUTO) 1.1 /CMM (0.8-4.8); LYMPHOCYTES % (AUTO) 9.7 % (20.0-44.0); MEAN CORPUSCULAR HEMOGLOBIN 30 PG (26.0-33.0); MEAN CORPUSCULAR HGB CONC 33 g/dl (31.0-36.0); MEAN CORPUSCULAR VOLUME 91 fL (80-96); MONOCYTES # (AUTO) 1.2 /CMM (0.1-1.30); MONOCYTES % (AUTO) 10.2 % (2.0-12.0); NEUTROPHILS # (AUTO) 8.4 /CMM (1.8-8.9); NEUTROPHILS % (AUTO) 72.9 % (43.0-81.0); PLATELET COUNT (AUTO) 281 /CMM (150-450); RDW COEFFICIENT OF VARIATION 14.4 (11.5-15.0); RED BLOOD CELL COUNT(AUTO) 3.29 MIL/uL (4.5-6.0); WHITE BLOOD COUNT (AUTO) 11.5 K/uL (4.3-11.0)
[2017-08-03 07:46] LABS: CREATININE 5.1 mg/dL (0.6-1.3); MAGNESIUM 1.8 mg/dL (1.8-2.4); PHOSPHORUS 6.5 mg/dL (2.5-4.9)
--- NOTE | 2017-08-03 07:47 | NUR ---
RN OPENING NOTES RECEIVED PATIENT RESTING IN BED WITH HOB ELEVATED. PATIENT AOX2. PATIENT DENIES PAIN, SOB, AND CP. NO ACUTE DISTRESS NOTED. RESPIRATION EVEN AND UNLABORED. ON 2L NC SATURATING ADEQUATELY. BILATERAL LEG EDEMA NOTED. F/C IN PLACE DRAINING YELLOW URINE. PATIENT HAD HD YESTERDAY WITH 1.5 L REMOVED. SAÚL MIDLINE NS RUNNING TKO. SITE PATENT AND INTACT. RAC 20 G H/L. IV PATENT AND INTACT NO INFILTRATION NOTED. R GROIN LATIA CATH CLEAN DRY AND INTACT. BED LOCKED IN THE LOWEST POSITION WITH SIDE RAILS UP X2. CALL LIGHT WITHIN REACH. WILL CONTINUE TO MONITOR, ASSESS AND EDUCATE PATIENT THROUGHOUT SHIFT.
[2017-08-03 08:00] VITALS: BP 137/73
[2017-08-03] MEDS: SEVELAMER CARBONATE 800 MG TABLET PO SCH ×3 (08:49→18:00)
[2017-08-03] MEDS: GABAPENTIN 300 MG CAPSULE PO SCH ×2 (08:50→17:00)
[2017-08-03] MEDS: ASPIRIN EC 81 MG TABLET.DR PO SCH (08:50)
[2017-08-03] MEDS: MEROPENEM 500 MG in IV NS 0.9% 50 ML IV SCH ×2 (08:51→20:50)
[2017-08-03] MEDS: hydrALAZINE HCL 50 MG TABLET PO SCH ×3 (08:54→17:00)
[2017-08-03] MEDS: CADEXOMER IODINE 40 GM TUBE TP SCH (08:55)
[2017-08-03] MEDS: Z GUARD REMEDY 2 OZ OINT TP SCH (08:56)
[2017-08-03] MEDS: CLONIDINE HCL 0.1 MG TABLET PO SCH ×2 (08:58→17:00)
[2017-08-03] MEDS: CARVEDILOL 12.5 MG TABLET PO SCH ×2 (08:59→20:51)
[2017-08-03] MEDS: AMLODIPINE BESYLATE 10 MG TABLET PO SCH (09:00)
[2017-08-03] MEDS: HEPARIN SODIUM, PORCINE 5000 UNITS/1 ML VIAL SQ SCH ×2 (09:02→20:51)
--- NOTE | 2017-08-03 09:05 | NUR ---
RN NON ADMIN NOTES HELD AMLODIPINE. PATIENT HAD LOW BP AFTER GIVING ALL MORNING BP MEDS YESTERDAY. WILL CONTINUE TO MONITOR PATIENT.
[2017-08-03] MEDS: FUROSEMIDE 40 MG/4 ML VIAL IV SCH ×2 (09:22→17:00)
--- NOTE | 2017-08-03 09:35 | NUR ---
RN NOTES ORDERS GIVEN BY DR. MACK TO PLACE PATIENT ON NPO FOR PERMACATH PLACEMENT. ORDERS GIVEN TO OBTAIN CONSENT FOR PROCEDURE. WILL CARRY OUT ORDERS.
[2017-08-03] MEDS: ISOSORBIDE DINITRATE (10MG) 10 MG TABLET PO SCH ×3 (11:04→20:50)
--- NOTE | 2017-08-03 11:50 | NUR ---
RN NOTES CONSENT FOR PROCEDURE (PERMACATH PLACEMENT) AND ANESTHESIA SIGNED AND PLACED IN CHART. SIGNED BY PATIENTS .
[2017-08-03] MEDS: INSULIN REGULAR, HUMAN 100 UNIT/ML 3 ML VIAL SQ PRN (12:37)
--- NOTE | 2017-08-03 12:38 | NUR ---
RN NON ADMIN NOTES PATIENT NPO. BLOOD SUGAR 170. NO INSULIN ADMINISTERED BECAUSE PATIENT IS NPO TO HAVE PROCEDURE.
--- NOTE | 2017-08-03 13:44 | NUR ---
RN NON ADMIN NOTES PATIENT NPO FOR PROCEDURE (PERMACATH PLACEMENT). WILL CONTINUE TO IMPLEMENT NPO PROTOCOL.
[2017-08-03 16:00] VITALS: BP 121/56
--- NOTE | 2017-08-03 16:00 | NUR ---
RN NON ADMINI NOTES PATIENT NPO FOR PROCEDURE (PERMACATH PLACEMENT). BP WNL 121/56. WILL CONTINUE TO MONITOR.
[2017-08-03] MEDS ORDERED: LIDOCAINE 1% INJ 50 ML MDV IJ ONE (16:30)
[2017-08-03] MEDS ORDERED: HEPARIN SODIUM, PORCINE 1,000 UNIT/ML VIAL ONE (16:31)
--- NOTE | 2017-08-03 17:02 | NUR ---
RN NOTES PATIENT TAKEN FOR PROCEDURE BY SERVICE DELIVERY MANAGER ARIANNA. PATIENT IN STABLE CONDITION. NO 1700 MEDS GIVEN PATIENT IS BEING MOVED TO SURGERY AND PATIENT IS NPO. WILL WAIT FOR PATIENT TO RETURN TO UNIT.
[2017-08-03] MEDS ORDERED: FENTANYL PF 100MCG/2ML AMPUL ONE (17:18)
--- NOTE | 2017-08-03 18:29 | NUR ---
RN NOTES PATIENT RETURNED TO UNIT IN STABLE CONDITION. MADI CALDERON GAVE PROCEDURE REPORT. PATIENT TOLERATED WELL. RIGHT GROIN LATIA CATH REMOVED. RIGHT CHEST WALL PERMACATH PLACED. DRESSINGS CLEAN AND INTACT. NO S/S OF BLEEDING. CXR DONE IN PACU TO CONFIRM. PLACEMENT. RADHA,. CONTINUE TO MONITOR. RESUME ORDER FOR RENAL 80MG DIET PER DIETARY.
--- NOTE | 2017-08-03 19:13 | NUR ---
RN CLOSING NOTES PATIENT IN STABLE CONDITION. PATIENT RESTING COMFORTABLY IN BED. PATIENT IN STABLE CONDITION. PATIENT CONDITION REMAINS UNCHANGED. F/C IN PLACE DRAINING YELLOW URINE. PATIENT TO HAVE HD 08/04. NEW RIGHT CHEST WALL PERMACATH PLACED. DRESSING CLEAN AND DRY. PATIENT RIGHT GRION LATIA CATH REMOVED. DRESSING CLEAN AND DRY. PATIENT DENIES CP, SOB. NO ACUTE DISTRESS. RESPIRATIONS EVEN AN UNLABORED. PATIENT SATURATING ADEQUATELY ON 2L. BED LOCKED IN THE LOWEST POSITION WITH SIDE RAILS UP X2. PATIENT ABLE TO VERBALIZE NEEDS. ALL NEEDS MET. ALL MEDS GIVEN APPROPRIATE. WILL ENDORSE TO NIGHT RN FOR CONTINUATION.
--- NOTE | 2017-08-03 19:30 | NUR ---
MS RN NOTE RECEIVED PATIENT FROM DAY SHIFT, PATIENT IS ALERT AND ORIENTEX2, EATING DINNER AT THIS TIME, NO S/S OF RESPIRATORY DISTRESS AND DENIES PAIN AT THIS TIME. MID LINE ON RIGHT UPPER ARM IS PATENT AND INTACT, HL ONLY. NEW RIGHT CHEST WALL PERMACATH NOTED. SRX2, BED IN LOW POSITION, CALL LIGHT WITHIN REACH, WILL CONTINUE TO MONITOR PATIENT.
[2017-08-03 20:00] VITALS: BP 117/63
[2017-08-03] MEDS: ATORVASTATIN 10 MG TABLET PO SCH (21:44)
[2017-08-03] MEDS: TAMSULOSIN 0.4 MG CAP.SR.24H PO SCH (21:44)
[2017-08-03] MEDS: *INSULIN REGULAR(HUMULIN R)HUM 100 UNIT/ML VIAL SQ PRN (21:49)
[2017-08-03] MEDS: INSULIN DETEMIR 100 UNIT/ML CARTRIDGE SQ SCH (21:54)
[2017-08-04] MEDS: ISOSORBIDE DINITRATE (10MG) 10 MG TABLET PO SCH (04:47)
[2017-08-04] MEDS: BLOOD SUGAR DIAGNOSTIC 1 EACH STRIP VI SCH ×4 (05:48→20:55)
--- NOTE | 2017-08-04 06:43 | NUR ---
MS RN NOTE PATIENT IS SLEEPING IN BED COMFORTABLY, NO S/S OF RESPIRATORY DISTRESS OR PAIN AT THIS TIME. MIDLINE IS PATENT AND INTACT, HL ONLY. NO ACUTE DISTRESS THROUGHOUT THE SHIFT. MORNING CARE RENDERED AND ALL DUE MEDS GIVEN. WILL ENDORSE TO DAY SHIFT NURSE FOR JIMBO.
--- NOTE | 2017-08-04 06:54 | NUR ---
RN OPENING NOTES RECEIVED REPORT ON THE PATIENT. PATIENT RESTING IN BED WITH THE EYES CLOSED WITH HOB ELEVATED. NO S/S OF ACUTE DISTRESS. RESPIRATION EVEN AND UNLABORED. F/C IN PLACE DRAINING YELLOW URINE. SIEVE GRADER TENDER URINE OUTPUT REPORTED TO BE 350 ML. SAÚL MIDLINE. SITE PATENT AND INTACT. RIGHT CHEST WALL PERMA CATH CLEAN DRY AND INTACT. BED LOCKED IN THE LOWEST POSITION WITH SIDE RAILS UP X3. BED ALARM IS ON. CALL LIGHT WITHIN REACH. WILL CONTINUE TO MONITOR, ASSESS AND EDUCATE PATIENT THROUGHOUT SHIFT.
[2017-08-04 07:41] LABS: BASOPHILS % (AUTO) 0.1 % (0.0-2.0); EOSINOPHILS # (AUTO) 0.4 /CMM (0.0-0.7); EOSINOPHILS % (AUTO) 3.1 % (0.0-6.0); HEMATOCRIT 26 % (39-51); HEMOGLOBIN 8.6 g/dL (13.5-17.5); LYMPHOCYTES # (AUTO) 1.4 /CMM (0.8-4.8); LYMPHOCYTES % (AUTO) 11.6 % (20.0-44.0); MEAN CORPUSCULAR HEMOGLOBIN 30 PG (26.0-33.0); MEAN CORPUSCULAR HGB CONC 33 g/dl (31.0-36.0); MEAN CORPUSCULAR VOLUME 91 fL (80-96); MONOCYTES # (AUTO) 1.2 /CMM (0.1-1.30); MONOCYTES % (AUTO) 9.7 % (2.0-12.0); NEUTROPHILS # (AUTO) 9.3 /CMM (1.8-8.9); NEUTROPHILS % (AUTO) 75.5 % (43.0-81.0); PLATELET COUNT (AUTO) 246 /CMM (150-450); RDW COEFFICIENT OF VARIATION 14.4 (11.5-15.0); RED BLOOD CELL COUNT(AUTO) 2.85 MIL/uL (4.5-6.0); WHITE BLOOD COUNT (AUTO) 12.3 K/uL (4.3-11.0)
[2017-08-04 08:00] VITALS: BP 143/73
[2017-08-04 08:01] LABS: CALCIUM, SERUM 7.5 mg/dL (8.5-10.1); CREATININE 5.6 mg/dL (0.6-1.3); POTASSIUM 4.2 mmol/L (3.5-5.1)
[2017-08-04] MEDS: SEVELAMER CARBONATE 800 MG TABLET PO SCH ×3 (08:39→17:25)
[2017-08-04] MEDS: ASPIRIN EC 81 MG TABLET.DR PO SCH (08:40)
[2017-08-04] MEDS: Z GUARD REMEDY 2 OZ OINT TP PRN ×2 (08:40→17:26)
[2017-08-04] MEDS: FUROSEMIDE 40 MG/4 ML VIAL IV SCH ×2 (08:41→17:05)
[2017-08-04] MEDS: CARVEDILOL 12.5 MG TABLET PO SCH ×2 (08:45→20:43)
[2017-08-04] MEDS: MEROPENEM 500 MG in IV NS 0.9% 50 ML IV SCH ×2 (08:45→20:39)
[2017-08-04] MEDS: GABAPENTIN 300 MG CAPSULE PO SCH ×2 (08:46→17:05)
[2017-08-04] MEDS: AMLODIPINE BESYLATE 10 MG TABLET PO SCH (08:47)
[2017-08-04] MEDS: hydrALAZINE HCL 50 MG TABLET PO SCH ×3 (08:47→17:06)
[2017-08-04] MEDS: CLONIDINE HCL 0.1 MG TABLET PO SCH ×2 (08:48→17:00)
[2017-08-04] MEDS: HEPARIN SODIUM, PORCINE 5000 UNITS/1 ML VIAL SQ SCH ×2 (08:51→20:44)
[2017-08-04] MEDS: CADEXOMER IODINE 40 GM TUBE TP SCH (09:01)
[2017-08-04] MEDS: Z GUARD REMEDY 2 OZ OINT TP SCH (09:04)
[2017-08-04] MEDS ORDERED: ATOR10TA PO (10:49)
[2017-08-04] MEDS ORDERED: ISOS10TA2 PO (10:49)
[2017-08-04] MEDS ORDERED: AMLO10TA2 PO (10:49)
[2017-08-04] MEDS ORDERED: HYDR-4077 PO (10:49)
[2017-08-04] MEDS ORDERED: CARV12.52 PO (10:49)
[2017-08-04] MEDS ORDERED: FURO-144 PO (11:09)
[2017-08-04] MEDS ORDERED: ASPI-991 PO (11:09)
[2017-08-04] MEDS: INSULIN REGULAR, HUMAN 100 UNIT/ML 3 ML VIAL SQ PRN ×2 (13:13→17:19)
--- NOTE | 2017-08-04 14:00 | NUR ---
MS RN NOTE HEMODIALYSIS AT THE BEDSIDE.
[2017-08-04 16:00] VITALS: BP 137/63
--- NOTE | 2017-08-04 17:00 | NUR ---
MS RN NOTE HEMODIALYSIS REMOVED 1.5 L OF FLUID. PATIENT'S BP 139/68 HR 73. PATIENT IS STABLE.
[2017-08-04] MEDS: HYDROCODONE/APAP 5/325MG 1 EACH TABLET PO PRN ×2 (17:28→23:10)
--- NOTE | 2017-08-04 19:13 | NUR ---
MS RN CLOSING NOTE PATIENT IS SLEEPING IN THE BED COMFORTABLY. THE BED IS LOCKED IN LOWEST POSITION, SIDE RALES UP X 2, BED ALARM ON. THE AT THE BEDSIDE. PATIENT DNIES PAIN/DISCOMFORT AT THIS TIME. 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
[2017-08-04 20:00] VITALS: BP 112/60
[2017-08-04] MEDS: ATORVASTATIN 10 MG TABLET PO SCH (20:42)
[2017-08-04] MEDS: TAMSULOSIN 0.4 MG CAP.SR.24H PO SCH (20:42)
[2017-08-04] MEDS: *INSULIN REGULAR(HUMULIN R)HUM 100 UNIT/ML VIAL SQ PRN (20:57)
--- NOTE | 2017-08-04 21:00 | NUR ---
PT ASLEEP IN BED NO ACUTE DISTRESS, AT BEDSIDE.
[2017-08-04] MEDS: INSULIN DETEMIR 100 UNIT/ML CARTRIDGE SQ SCH (21:01)
--- NOTE | 2017-08-05 04:05 | NUR ---
NO SIGNIFICANT CHANGES overnight, medicted x1 of norco for generalized pain, slept well overnight ,vss,afebrile will continue to monitor.
[2017-08-05] MEDS: BLOOD SUGAR DIAGNOSTIC 1 EACH STRIP VI SCH ×4 (06:41→21:39)
--- NOTE | 2017-08-05 07:29 | NUR ---
MS RN OPENING NOTE RECEIVED REPORT ON THE PATIENT. PATIENT IS RESTING IN BED WITH THE EYES CLOSED.BED IS LOCKED IN THE LOWEST POSITION, SIDE RAILS UP X 3, BED ALARM ON, PATIENT IN HIGH QUIROS'S POSITION. THE AT THE BEDSIDE. PER THE 'S REPORT THE PATIENT SLEPT WELL THROUGHOUT THE NIGHT AND THE PAIN WAS WELL CONTROLLED WITH THE MEDICATION. DENIES PAIN/DISCOMFORT AT THIS TIME. ALL NEEDS ATTENDED TO. CALL LIGHT WITHIN REACH. TOLD THE PATIENT/PATIENT'S TO CALL FOR HELP WHEN NEEDED. PATIENT/ VERBALIZED UNDERSTANDING. WILL CONTINUE TO MONITOR.
--- NOTE | 2017-08-05 07:30 | NUR ---
pt bs 60mg/dl given apple juice and rechecked 81mg/dl. will continue to monitor. back to sleep.
[2017-08-05 08:00] VITALS: BP 119/59
[2017-08-05] MEDS: SEVELAMER CARBONATE 800 MG TABLET PO SCH ×3 (08:51→17:47)
[2017-08-05] MEDS: ASPIRIN EC 81 MG TABLET.DR PO SCH (08:51)
[2017-08-05] MEDS: MEROPENEM 500 MG in IV NS 0.9% 50 ML IV SCH ×2 (08:51→20:13)
[2017-08-05] MEDS: hydrALAZINE HCL 50 MG TABLET PO SCH ×3 (08:52→17:47)
[2017-08-05] MEDS: GABAPENTIN 300 MG CAPSULE PO SCH ×2 (08:53→17:48)
[2017-08-05] MEDS: AMLODIPINE BESYLATE 10 MG TABLET PO SCH (08:53)
[2017-08-05] MEDS: CARVEDILOL 12.5 MG TABLET PO SCH ×2 (08:54→21:32)
[2017-08-05] MEDS: CLONIDINE HCL 0.1 MG TABLET PO SCH ×2 (09:00→17:00)
[2017-08-05] MEDS: FUROSEMIDE 40 MG/4 ML VIAL IV SCH ×2 (09:13→17:47)
[2017-08-05] MEDS: HEPARIN SODIUM, PORCINE 5000 UNITS/1 ML VIAL SQ SCH (09:14)
[2017-08-05] MEDS: Z GUARD REMEDY 2 OZ OINT TP SCH (09:14)
[2017-08-05] MEDS: CADEXOMER IODINE 40 GM TUBE TP SCH (09:19)
[2017-08-05] MEDS ORDERED: EPOETIN ALFA (20,000 UNIT) 20,000 UNIT/ML VIAL IV ONE (10:00)
--- NOTE | 2017-08-05 11:27 | NUR ---
MS RN NOTE ADMINISTERING EPOGEN ONCE DELIVERED BY THE PHARMACY. HEMOGLOBIN 8.6
[2017-08-05] MEDS: INSULIN REGULAR, HUMAN 100 UNIT/ML 3 ML VIAL SQ PRN (12:18)
[2017-08-05 16:00] VITALS: BP 143/68
--- NOTE | 2017-08-05 19:32 | NUR ---
RN CLOSING NOTES SBAR REPORT GIVEN TO MAYNOR LANDEROS RN. PATIENT RESTING IN BED WITH THE EYES CLOSED WITH HOB ELEVATED. NO S/S OF ACUTE DISTRESS. RESPIRATION EVEN AND UNLABORED. F/C IN PLACE DRAINING YELLOW URINE. . SAÚL MIDLINE. SITE PATENT AND INTACT. RIGHT CHEST WALL PERMA CATH CLEAN DRY AND INTACT. BED LOCKED IN THE LOWEST POSITION WITH SIDE RAILS UP X3. BED ALARM IS ON. CALL LIGHT WITHIN REACH.
[2017-08-05 20:00] VITALS: BP 138/67
[2017-08-05] MEDS: TAMSULOSIN 0.4 MG CAP.SR.24H PO SCH (21:32)
[2017-08-05] MEDS: ATORVASTATIN 10 MG TABLET PO SCH (21:32)
[2017-08-05] MEDS: INSULIN DETEMIR 100 UNIT/ML CARTRIDGE SQ SCH (21:41)
--- NOTE | 2017-08-06 04:00 | NUR ---
awaiting for CM to arrange for HD placement, pt going home with . denies any pain overnight, wound care provided, continue on antibiotics,vss,afebrile.slept well.
[2017-08-06] MEDS: BLOOD SUGAR DIAGNOSTIC 1 EACH STRIP VI SCH ×4 (06:53→22:20)
[2017-08-06 07:03] LABS: BASOPHILS # (AUTO) 0.1 /CMM (0.0-0.2); BASOPHILS % (AUTO) 0.4 % (0.0-2.0); EOSINOPHILS # (AUTO) 0.5 /CMM (0.0-0.7); EOSINOPHILS % (AUTO) 4.1 % (0.0-6.0); HEMATOCRIT 27 % (39-51); HEMOGLOBIN 8.9 g/dL (13.5-17.5); LYMPHOCYTES # (AUTO) 1.3 /CMM (0.8-4.8); LYMPHOCYTES % (AUTO) 10.4 % (20.0-44.0); MEAN CORPUSCULAR HEMOGLOBIN 30 PG (26.0-33.0); MEAN CORPUSCULAR HGB CONC 33 g/dl (31.0-36.0); MEAN CORPUSCULAR VOLUME 91 fL (80-96); MONOCYTES # (AUTO) 1.3 /CMM (0.1-1.30); MONOCYTES % (AUTO) 10.4 % (2.0-12.0); NEUTROPHILS % (AUTO) 74.7 % (43.0-81.0); PLATELET COUNT (AUTO) 284 /CMM (150-450); RDW COEFFICIENT OF VARIATION 14.5 (11.5-15.0); RED BLOOD CELL COUNT(AUTO) 2.98 MIL/uL (4.5-6.0); WHITE BLOOD COUNT (AUTO) 12.1 K/uL (4.3-11.0)
[2017-08-06 07:20] LABS: CALCIUM, SERUM 8.3 mg/dL (8.5-10.1); MAGNESIUM 2.1 mg/dL (1.8-2.4); PHOSPHORUS 6.1 mg/dL (2.5-4.9); POTASSIUM 3.8 mmol/L (3.5-5.1)
[2017-08-06 08:00] VITALS: BP 121/63
[2017-08-06] MEDS: SEVELAMER CARBONATE 800 MG TABLET PO SCH ×3 (08:00→17:35)
--- NOTE | 2017-08-06 08:00 | NUR ---
MS RN RECEIVED ON BED, SLEEPING,NOT IN ANY FORM OF DISTRESS, RESPIRATIONS EVEN AND UNLABORED,NO SOB NOTED, LUNGS ARE CLEAR,ABDOMEN SOFT,POSITIVE BOWEL SOUNDS, DENIES PAIN AT THIS TIME. WILL MONITOR PATIENT.
[2017-08-06 08:57] VITALS: BP 122/63
[2017-08-06] MEDS: hydrALAZINE HCL 50 MG TABLET PO SCH ×3 (09:00→17:35)
[2017-08-06] MEDS: CLONIDINE HCL 0.1 MG TABLET PO SCH ×2 (09:00→17:00)
[2017-08-06] MEDS ORDERED: GABA300C PO (09:01)
--- NOTE | 2017-08-06 09:30 | NUR ---
MS RN PATIENT REFUSED BREAKFAST, WILL GIVE MEDS AFTER HD TX, STABLE.
--- NOTE | 2017-08-06 10:00 | NUR ---
MS RN HELD MEDS AT THIS TIME, PATIENT WILL HAVE HD TODAY.
[2017-08-06] MEDS: MEROPENEM 500 MG in IV NS 0.9% 50 ML IV SCH ×2 (11:10→20:30)
[2017-08-06] MEDS: FUROSEMIDE 40 MG/4 ML VIAL IV SCH ×2 (11:14→17:35)
[2017-08-06] MEDS: ASPIRIN EC 81 MG TABLET.DR PO SCH (11:15)
[2017-08-06] MEDS: GABAPENTIN 300 MG CAPSULE PO SCH ×2 (11:15→17:35)
[2017-08-06] MEDS: AMLODIPINE BESYLATE 10 MG TABLET PO SCH (11:16)
[2017-08-06] MEDS: CARVEDILOL 12.5 MG TABLET PO SCH ×2 (11:16→20:31)
[2017-08-06] MEDS: Z GUARD REMEDY 2 OZ OINT TP PRN (11:17)
--- NOTE | 2017-08-06 12:00 | NUR ---
MS MADI HD GOING ON, DUE MEDS HELD AT THIS TIME.
[2017-08-06] MEDS: CADEXOMER IODINE 40 GM TUBE TP SCH (13:42)
[2017-08-06] MEDS: Z GUARD REMEDY 2 OZ OINT TP SCH (13:42)
[2017-08-06 16:00] VITALS: BP 116/64
--- NOTE | 2017-08-06 16:00 | NUR ---
MS RN HD DONE W/ 1 LITER OUTPUT. DUE MEDS GIVEN,TOLERATED WELL.
--- NOTE | 2017-08-06 18:00 | NUR ---
MS RN BS - 143 - REFUSED COVERAGE, NOT EATING WELL. W/ HX OF LOW BS.
--- NOTE | 2017-08-06 19:03 | NUR ---
MS RN ON BED, EATING, AT BEDSIDE, NO DISTRESS NOTED. WILL ENDORSE TO MANAGER HOTEL FOR JIMBO.
[2017-08-06 20:00] VITALS: BP 138/63
[2017-08-06] MEDS: ATORVASTATIN 10 MG TABLET PO SCH (20:30)
[2017-08-06] MEDS: TAMSULOSIN 0.4 MG CAP.SR.24H PO SCH (20:30)
[2017-08-06] MEDS: HYDROCODONE/APAP 5/325MG 1 EACH TABLET PO PRN (20:31)
--- NOTE | 2017-08-06 21:00 | NUR ---
PT IN BED C/O GENERALIZED PAIN , REPOSITIONED FOR COMFORT, MEDS GIVEN. AT BEDSIDE. NO D/CD ORDER YET AT THIS TIME. BUT WILL STAY HOPING TO BE D/CD IN AM.VSS,AFEBRILE, ALL NEEDS ATTENDED.CALL LIGHT AT REACHED.
[2017-08-06] MEDS: INSULIN DETEMIR 100 UNIT/ML CARTRIDGE SQ SCH (22:22)
[2017-08-06] MEDS: *INSULIN REGULAR(HUMULIN R)HUM 100 UNIT/ML VIAL SQ PRN (22:23)
[2017-08-07] MEDS: BLOOD SUGAR DIAGNOSTIC 1 EACH STRIP VI SCH ×4 (07:01→21:48)
--- NOTE | 2017-08-07 07:30 | NUR ---
RECEIVED PT. IN AM,ALERT AND ORIENTED X3. AT BEDSIDE.F/C TO GRAVITY DRAINAGE WITH GOOD OUTPUT.FOOT DRESSINGS DRY AND INTACT.
[2017-08-07 08:00] VITALS: BP 139/69
[2017-08-07] MEDS: hydrALAZINE HCL 50 MG TABLET PO SCH ×3 (09:00→19:01)
[2017-08-07] MEDS: CLONIDINE HCL 0.1 MG TABLET PO SCH ×2 (09:00→20:49)
[2017-08-07] MEDS: GABAPENTIN 300 MG CAPSULE PO SCH ×2 (09:27→17:37)
[2017-08-07] MEDS: SEVELAMER CARBONATE 800 MG TABLET PO SCH ×3 (09:27→17:37)
[2017-08-07] MEDS: MEROPENEM 500 MG in IV NS 0.9% 50 ML IV SCH ×2 (09:27→20:42)
[2017-08-07] MEDS: AMLODIPINE BESYLATE 10 MG TABLET PO SCH (09:28)
[2017-08-07] MEDS: ASPIRIN EC 81 MG TABLET.DR PO SCH (09:28)
[2017-08-07] MEDS: CARVEDILOL 12.5 MG TABLET PO SCH ×2 (09:29→20:49)
[2017-08-07] MEDS: Z GUARD REMEDY 2 OZ OINT TP SCH (09:30)
[2017-08-07] MEDS: CADEXOMER IODINE 40 GM TUBE TP SCH (09:30)
[2017-08-07] MEDS: FUROSEMIDE 40 MG/4 ML VIAL IV SCH ×2 (09:32→17:36)
--- NOTE | 2017-08-07 11:00 | NUR ---
DÍAZ CATH REMOVED,MONITORING FOR VOIDING.
[2017-08-07 16:00] VITALS: BP 135/70
--- NOTE | 2017-08-07 17:30 | NUR ---
STILL AWAITING CASE MGMT. TO FIND DIALYSIS SITE FOR PT.SAP BW ARCHITECT. HERE TO SPEAK TO .
[2017-08-07] MEDS: INSULIN REGULAR, HUMAN 100 UNIT/ML 3 ML VIAL SQ PRN (17:38)
[2017-08-07] MEDS: HYDROCODONE/APAP 5/325MG 1 EACH TABLET PO PRN (18:57)
[2017-08-07 20:00] VITALS: BP 138/66
[2017-08-07] MEDS: ATORVASTATIN 10 MG TABLET PO SCH (20:48)
[2017-08-07] MEDS: TAMSULOSIN 0.4 MG CAP.SR.24H PO SCH (20:48)
--- NOTE | 2017-08-07 21:00 | NUR ---
PT AWAKE IN BED,MEDICATED WITH NORCO EARLIER STILL IN PAIN, REPOSITIONED IN BED FOR COMFORT,VSS,AFEBRILE. WILL CONTINUE TO MONITOR.
[2017-08-07] MEDS: INSULIN DETEMIR 100 UNIT/ML CARTRIDGE SQ SCH (21:50)
[2017-08-07] MEDS: *INSULIN REGULAR(HUMULIN R)HUM 100 UNIT/ML VIAL SQ PRN (21:52)
[2017-08-08] MEDS: BLOOD SUGAR DIAGNOSTIC 1 EACH STRIP VI SCH ×4 (06:38→22:32)
--- NOTE | 2017-08-08 07:00 | NUR ---
PT SLEPT WELL, DIDN'T ASKED FOR PAIN MEDS AFTER REPOSITIONED LAST NIGHT,INCONTINENT WITH DIAPER, NO SIGNIFICANT CHANGES OVERNIGHT FINGERSTICK 82MG/DL THIS MORNING.WILL CONTINUE TO MONITOR,CALL LIGHT AT REACHED.
[2017-08-08 08:00] VITALS: BP 124/60
--- NOTE | 2017-08-08 08:30 | NUR ---
MS RN RECEIVED ON BED, AWAKE,ALERT,ORIENTED X3,NOT IN ANY FORM OF DISTRESS, RESPIRATIONS EVEN AND UNLABORED,NO SOB NOTED. LUNGS ARE CLEAR,ABDOMEN SOFT,POSITIVE BOWEL SOUNDS DENIES PAIN AT THIS TIME,ALL NEEDS ATTENDED.
[2017-08-08] MEDS: MEROPENEM 500 MG in IV NS 0.9% 50 ML IV SCH (09:00)
[2017-08-08] MEDS: CLONIDINE HCL 0.1 MG TABLET PO SCH ×2 (09:00→17:00)
--- NOTE | 2017-08-08 09:00 | NUR ---
MS MADI STARK SERVED,DUE MEDS GIVEN,TOLERATED WELL.
[2017-08-08] MEDS: HYDROCODONE/APAP 5/325MG 1 EACH TABLET PO PRN ×2 (09:11→16:19)
[2017-08-08] MEDS: ASPIRIN EC 81 MG TABLET.DR PO SCH (09:11)
[2017-08-08] MEDS: GABAPENTIN 300 MG CAPSULE PO SCH ×2 (09:11→17:41)
[2017-08-08] MEDS: AMLODIPINE BESYLATE 10 MG TABLET PO SCH (09:12)
[2017-08-08] MEDS: hydrALAZINE HCL 50 MG TABLET PO SCH ×3 (09:12→17:41)
[2017-08-08] MEDS: FUROSEMIDE 40 MG/4 ML VIAL IV SCH ×2 (09:13→17:42)
[2017-08-08] MEDS: CARVEDILOL 12.5 MG TABLET PO SCH ×2 (09:13→20:39)
[2017-08-08] MEDS: SEVELAMER CARBONATE 800 MG TABLET PO SCH ×3 (09:15→17:44)
[2017-08-08] MEDS: CADEXOMER IODINE 40 GM TUBE TP SCH (09:27)
[2017-08-08] MEDS: Z GUARD REMEDY 2 OZ OINT TP SCH (09:27)
--- NOTE | 2017-08-08 13:00 | NUR ---
MS RN MEDS HELD,, DIALYSIS ON GOING AT THIS TIME.
--- NOTE | 2017-08-08 15:00 | NUR ---
MS COMMUTATOR PRESSER DONE W/ 1 LITER OUT PUT.
[2017-08-08 16:00] VITALS: BP 125/67
--- NOTE | 2017-08-08 16:00 | NUR ---
MS RN PATIENT COMPLAIN OF BLADDER PAIN,NO OUTPUT AT THIS TIME, BLADDER SO DISTENDED.CALLED DR. JALLOH FOR DÍAZ ORDER.
--- NOTE | 2017-08-08 16:30 | NUR ---
MS BARRAZA DÍAZ INSERTED W/ 1800ML OUTPUT INITIALLY.
--- NOTE | 2017-08-08 18:00 | NUR ---
MS RN BS -103 - NO COVERAGE GIVEN, PATIENT IS MORE COMFORTABLE NOW, WILL ENDORSE TO CERTIFIED HAND THERAPIST FOR CONTINUITY OF CARE.
[2017-08-08] MEDS: ACETAMINOPHEN 325 MG TABLET PO PRN (19:48)
--- NOTE | 2017-08-08 19:48 | NUR ---
MS RN NOTES PATIENT C/O GENERALIZED BODYACHE. PRN TYLENOL ADMINISTERED ORDERED. WILL REASSESS FOR EFFECTIVENESS.
[2017-08-08 20:00] VITALS: BP 138/75
--- NOTE | 2017-08-08 20:00 | NUR ---
MS RN NOTES RECEIVED PATIENT RESTING IN BED, A & O X 3,TALKATIVE. NO ACUTE DISTRESS NOTED. HAD C/O GENERALIZED BODYACHE, PRN TYLENOL ADMINISTERED, WILL REASSESS FOE EFFECTIVENESS. HAS DÍAZ CATH IN PLACE, FLOWING WITH CLEAR YELLOW URINE. HAS SAÚL MIDLINE, INTACT PATENT. RIGHT CHEST PERMACATH FOR HEMODIALYSIS, DRESSING INTACT. BED IN LOW LOCKED POSITION. CALL LIGHT WITHIN REACH. CONTINUING TO MONITOR.
[2017-08-08] MEDS: FINASTERIDE (5 MG) 5 MG TABLET PO SCH (20:39)
[2017-08-08] MEDS: TAMSULOSIN 0.4 MG CAP.SR.24H PO SCH (22:32)
[2017-08-08] MEDS: ATORVASTATIN 10 MG TABLET PO SCH (22:32)
[2017-08-08] MEDS: INSULIN DETEMIR 100 UNIT/ML CARTRIDGE SQ SCH (22:34)
[2017-08-08] MEDS: INSULIN REGULAR, HUMAN 100 UNIT/ML 3 ML VIAL SQ PRN (22:38)
--- NOTE | 2017-08-09 06:32 | NUR ---
MS RN NOTES PATIENT SLEPT WELL AT NIGHT. NO DISTRESS, NO C/O PAIN NOTED. REFUSED TO BE TURNED TO HIS SIDES, WHEN ENCOURAGED & ALLOWED TO ASSIST HIM CHANGING POSITION. SAÚL MIDLINE, INTACT PATENT. NO SOB, RESP EVEN & NONLABORED. RIGHT CHEST PERMCATH FOR HEMODIALYSIS, INTACT PATENT. REPOSITIONED IN BED. KEPT CLEAN & DRY. HAS DÍAZ CATH IN PLACE WITH 900ML OUTPUT. ALL NEEDS ATTENDED TO & MET. CALL LIGHT WITHIN REACH. BED IN LOW LOCKED POSITION. WILL ENDORSE TO AM SHIFT.
[2017-08-09] MEDS: BLOOD SUGAR DIAGNOSTIC 1 EACH STRIP VI SCH ×2 (06:45→11:59)
--- NOTE | 2017-08-09 07:30 | NUR ---
MS RN AM NOTES RECEIVED IN BED, AWAKE,ALERT,ORIENTED X3,ON RA, NOT IN ANY FORM OF DISTRESS, RESPIRATIONS EVEN AND UNLABORED,NO SOB NOTED. DENIES PAIN, ABDOMEN SOFT,POSITIVE BOWEL SOUNDS, SAÚL MIDLINE FLUSHES WELL, CDI DRESSING, SITE CLEAR, WITH RT CHEST PERMACATH. SEE NURSING FLOWSHEET FOR SKIN ISSUES. RENAL DIET, CAN TURN SELF. DÍAZ CATH IN PLACE BUT WILL REMOVE IN A WHILES. WILL PERFORM PRESCRIBED WOUND TREATMENT IN A WHILE. CALL LIGHT WITHIN REACH, WILL CONT TO MONITOR,
[2017-08-09 08:00] VITALS: BP 136/78
[2017-08-09] MEDS: SEVELAMER CARBONATE 800 MG TABLET PO SCH ×2 (08:41→13:36)
[2017-08-09] MEDS: GABAPENTIN 300 MG CAPSULE PO SCH (08:41)
[2017-08-09] MEDS: FINASTERIDE (5 MG) 5 MG TABLET PO SCH (08:41)
[2017-08-09] MEDS: FUROSEMIDE 40 MG/4 ML VIAL IV SCH (08:42)
[2017-08-09] MEDS: CARVEDILOL 12.5 MG TABLET PO SCH (08:42)
[2017-08-09] MEDS: hydrALAZINE HCL 50 MG TABLET PO SCH ×2 (08:43→13:37)
[2017-08-09] MEDS: CLONIDINE HCL 0.1 MG TABLET PO SCH (08:43)
[2017-08-09] MEDS: AMLODIPINE BESYLATE 10 MG TABLET PO SCH (08:46)
[2017-08-09] MEDS: ASPIRIN EC 81 MG TABLET.DR PO SCH (08:46)
[2017-08-09] MEDS: Z GUARD REMEDY 2 OZ OINT TP SCH (08:58)
[2017-08-09] MEDS: CADEXOMER IODINE 40 GM TUBE TP SCH (08:59)
--- NOTE | 2017-08-09 09:30 | NUR ---
MS RN NOTES ADMINISTERED DUE MEDS. NOTIFIED DR. JALLOH THAT PT REFUSED TO HAVE DÍAZ CATH REMOVED.
--- NOTE | 2017-08-09 10:30 | NUR ---
MS RN NOTES PER DR. JALLOH PT OKAYED TO REMOVE DÍAZ CATH.
--- NOTE | 2017-08-09 12:02 | NUR ---
MS RN NOTES ACCUCHECK. BS 168 MG/DL. ADMINISTERED 3 UNITS HUM R PER SLIDING SCALE.
[2017-08-09] MEDS: INSULIN REGULAR, HUMAN 100 UNIT/ML 3 ML VIAL SQ PRN (12:05)
--- NOTE | 2017-08-09 14:30 | NUR ---
MS RN NOTES' DC'D DÍAZ CATHETER. 150 ML OUT PUT.
[2017-08-09 15:55] VITALS: BP 120/60
[2017-08-09 16:00] VITALS: BP 134/71
--- NOTE | 2017-08-09 16:03 | NUR ---
MS RN NOTES PT DISCHARGED TO HOME TODAY PER MD IN STABLE CONDITION. PROVIDED DC INSTRUCTIONS, MED RECON LIST AND HEALTH TEACHINGS. SAÚL MIDLINE REMOVED, CATH TIP COMPLETE, NO BLEEDING DRESSING IN PLACE. RT CHEST PERMACATH CDI DRESSING, PRESCRIBED WOUND TREATMENT DONE EARLIER, PHOTOS OF SKIN ISSUES TAKEN AND PLACED INSIDE THE CHART. PATIENT TO FOLLOW UP WITH PCP IN 1-2 WEEKS AND WILL MAKE OWN APPOINTMENT. MWF HD AT 1615 AT RENAL SCHEDULED. ALL BELONGINGS CHECKED AND RETURNED. ALL PAPERWORKS SIGNED BY . PICKED UP BY 2 AMBULANCE CREW AND WILL TRANSPORT PATIENT TO HOME.
== END 2017-08-09 16:00 | disposition home health service (06) | DRG 469 ==
LOC: ER 00:19 → TELE 03:11 → TELE-TD 03:11 → UNDOADMIN 03:11 → TELE-TD 05:46 → ICU 08:29 → TELE 07-31 18:04 → MED 07-31 19:40 → TELE 07-31 19:43 → UNDODISIN 08-01 00:45 → MED 08-01 08:22
PROVIDERS: ADMIT Internal Medicine; ATTEND Internal Medicine
PROC: 5A09357 Assistance with Respiratory Ventilation, Less than 24 Consecutive Hours, Continuous Positive Airway Pressure (ICD-10-PCS; principal; 2017-07-29)
PROC: 05H533Z Insertion of Infusion Device into Right Subclavian Vein, Percutaneous Approach (ICD-10-PCS; principal; 2017-07-29)
PROC: 30233N1 Transfusion of Nonautologous Red Blood Cells into Peripheral Vein, Percutaneous Approach (ICD-10-PCS; 2017-07-30)
PROC: 5A1D70Z Performance of Urinary Filtration, Intermittent, Less than 6 Hours Per Day (ICD-10-PCS; 2017-08-01)
PROC: 06HM33Z Insertion of Infusion Device into Right Femoral Vein, Percutaneous Approach (ICD-10-PCS; 2017-08-01)
PROC: 02HV33Z Insertion of Infusion Device into Superior Vena Cava, Percutaneous Approach (ICD-10-PCS; 2017-08-03)
PROC: B518YZA Fluoroscopy of Superior Vena Cava using Other Contrast, Guidance (ICD-10-PCS; 2017-08-03)
DX: N17.9 Acute kidney failure, unspecified (principal); I21.4 Non-ST elevation (NSTEMI) myocardial infarction; J96.01 Acute respiratory failure with hypoxia; I50.31 Acute diastolic (congestive) heart failure; J15.9 Unspecified bacterial pneumonia; E87.2 Acidosis; N18.6 End stage renal disease; E11.22 Type 2 diabetes mellitus with diabetic chronic kidney disease; I16.1 Hypertensive emergency; I13.2 Hypertensive heart and chronic kidney disease with heart failure and with stage 5 chronic kidney disease, or end stage renal disease; E11.621 Type 2 diabetes mellitus with foot ulcer; E87.5 Hyperkalemia; Z86.73 Personal history of transient ischemic attack (TIA), and cerebral infarction without residual deficits; I25.2 Old myocardial infarction; E83.39 Other disorders of phosphorus metabolism; I16.0 Hypertensive urgency; Z99.2 Dependence on renal dialysis; D63.1 Anemia in chronic kidney disease; L97.519 Non-pressure chronic ulcer of other part of right foot with unspecified severity; L97.529 Non-pressure chronic ulcer of other part of left foot with unspecified severity; Z79.4 Long term (current) use of insulin; Z88.0 Allergy status to penicillin
CPT/HCPCS: 36415; 36569; 36600; 71010-TC; 76770-TC; 80048-TC; 80053-TC; 80061-TC; 80076-TC; 81000-TC; 82272-TC; 82550-TC; 82570-TC; 82803-TC; 82962-TC; 83735-TC; 83880; 83970; 84100-TC; 84155; 84155-TC; 84165; 84300-TC; 84484-TC; 85025-TC; 85027-TC; 85730-TC; 86706; 86803; 86850-TC; 86921-TC; 87040-TC; 87081-TC; 87340; 90935-TC; 93307-TC; 97110-TC; 97112-TC; 97530-TC; A4216; A4606; A6402; A6403; C1750; J0885; J1644; J1815; J1940; J1956; J2185; J2405; J2704; J3010; J3490; J7030; J7050; J7060; P9016-BL; Z7610

== ENCOUNTER 2017-08-10 05:26 | Emergency (ER) | payer MEDICAID ==
[~2017-08-10] VITALS: Ht 182.9 cm; Wt 72.6 kg
[~2017-08-10 05:26] MED LIST changes: -ACET-868 PO; +AMLO10TA2 PO; -AMLO2.5T PO; +ASPI-991 PO; +ATOR10TA PO; -BISA10SU8 RC; +CARV12.52 PO; +CLON0.3T PO; +FURO-144 PO; +GABA300C PO; +HYDR-4077 PO; +INSU100I26 SQ; -INSU100V3 SQ; -LEVO500T15 PO; -LISI40TA4 PO; -MAGN400O6 PO; -METO25TA6 PO; -VANC1VIA2 IV; +ZOLP10TA6 PO
--- NOTE | 2017-08-10 05:27 | NUR ---
PT DEVYN FROM HOME, PT A/OX4 BREATHING EFFORTLESSLY ON ROOM AIR, PT STATES HE WAS DISCHARGED FROM THIS HOSPITAL YESTERDAY AND PT STATES SHE IS NOT ABLE TO TAKE CARE OF HIM AT HOME BY HERSELF, PT LAST DIALYSIS WAS ON SUNDAY AND IS DUE FOR DIALYSIS TODAY, PT ON MONITOR, IN GOWN, BLOOD SUGAR TAKEN, MD MADE AWARE WILL CONTINUE TO MONITOR.
--- NOTE | 2017-08-10 05:44 | NUR ---
IV PLACED AND LABS DRAWN AND SENT TO LAB
[2017-08-10 06:00] LABS: BASOPHILS # (AUTO) 0.2 /CMM (0.0-0.2); BASOPHILS % (AUTO) 1.3 % (0.0-2.0); EOSINOPHILS # (AUTO) 0.4 /CMM (0.0-0.7); HEMATOCRIT 26 % (39-51); HEMOGLOBIN 8.6 g/dL (13.5-17.5); LYMPHOCYTES # (AUTO) 1.5 /CMM (0.8-4.8); LYMPHOCYTES % (AUTO) 10.3 % (20.0-44.0); MEAN CORPUSCULAR HEMOGLOBIN 30 PG (26.0-33.0); MEAN CORPUSCULAR HGB CONC 33 g/dl (31.0-36.0); MEAN CORPUSCULAR VOLUME 90 fL (80-96); MONOCYTES # (AUTO) 1.6 /CMM (0.1-1.30); MONOCYTES % (AUTO) 10.8 % (2.0-12.0); NEUTROPHILS % (AUTO) 74.6 % (43.0-81.0); PLATELET COUNT (AUTO) 341 /CMM (150-450); RDW COEFFICIENT OF VARIATION 14.2 (11.5-15.0); RED BLOOD CELL COUNT(AUTO) 2.87 MIL/uL (4.5-6.0); WHITE BLOOD COUNT (AUTO) 14.8 K/uL (4.3-11.0)
[2017-08-10 06:05] LABS: POTASSIUM 4.4 mmol/L (3.5-5.1)
[2017-08-10 06:09] LABS: PHOSPHORUS 5.7 mg/dL (2.5-4.9)
--- NOTE | 2017-08-10 06:30 | NUR ---
PT C/O LOWER BACK PAIN MD MADE AWARE AND MEDICATION ORDERED WILL CONTINUE TO MONITOR.
--- NOTE | 2017-08-10 07:15 | NUR ---
RECEIVED REPORT, PATIENT REMAINS STABLE IN BED, WILL CONTINUE TO MONITOR.
--- NOTE | 2017-08-10 12:00 | NUR ---
AWAITING X RAY EQUIPMENT TESTER CONFIRMATION FOR DISPOSITION.
--- NOTE | 2017-08-10 14:33 | NUR ---
DENTAL ASSISTANT INSTRUCTOR CALLED WITH TRANSPORT ETA AT 1445, TO [facility] FOR DIALYSIS AFTER DIALYSIS, PT WILL GO TO [facility]
--- NOTE | 2017-08-10 16:46 | NUR ---
Report given to emt at bedside. [facility] Written and verbal after care instructions given. Patient verbalizes understanding of instruction. Patient discharged via ambulance.
[2017-08-10 16:50] VITALS: BP 142/64
== END 2017-08-10 16:51 ==
LOC: ER 05:28
DX: I13.2 Hypertensive heart and chronic kidney disease with heart failure and with stage 5 chronic kidney disease, or end stage renal disease (principal); G89.29 Other chronic pain; I50.9 Heart failure, unspecified; E11.22 Type 2 diabetes mellitus with diabetic chronic kidney disease; I25.2 Old myocardial infarction; N18.6 End stage renal disease; Z79.4 Long term (current) use of insulin; Z79.82 Long term (current) use of aspirin; Z88.0 Allergy status to penicillin; Z99.2 Dependence on renal dialysis
CPT/HCPCS: 36415; 71010; 80048; 82962; 83735; 84100; 85025; 93005; 96374; 96375; 99285; A4606; J2270; J2405; Z7610

== ENCOUNTER 2017-08-11 14:52 | Emergency (ER) | payer MEDICAID ==
[~2017-08-11] VITALS: Ht 177.8 cm; Wt 80.7 kg
--- NOTE | 2017-08-11 15:03 | NUR ---
JOSHUA FROM [facility] FOR DÍAZ CATH INSERTION. PER PATIENT'S PT HAS CHRONIC HX OF URINARY RETENTION AND FC WAS DISCONTINUED DURING HOSPITAL DISCHARGED,. HOWEVER NURSE FROM [facility] FAILED TO REINSERT A NEW ONE. PATIENT IS AFEBRILE. VSS
--- NOTE | 2017-08-11 15:42 | NUR ---
CALLED [facility] FOR TRANSPORTATION GOING BACK TO SNF, ETA 35-40 MIN.
[2017-08-11 16:10] VITALS: BP 110/70
[2017-08-19] MEDS ORDERED: INSU100I19 SQ (09:53)
[2017-08-19] MEDS ORDERED: SULF1TAB48 PO (09:54)
== END 2017-08-11 16:11 | disposition home or self-care (01) ==
LOC: ER 14:57
DX: T83.098A Other mechanical complication of other urinary catheter, initial encounter (principal); E11.22 Type 2 diabetes mellitus with diabetic chronic kidney disease; I13.0 Hypertensive heart and chronic kidney disease with heart failure and stage 1 through stage 4 chronic kidney disease, or unspecified chronic kidney disease; N18.9 Chronic kidney disease, unspecified; I50.9 Heart failure, unspecified; Z79.82 Long term (current) use of aspirin; Z79.4 Long term (current) use of insulin; Z99.2 Dependence on renal dialysis; Z88.0 Allergy status to penicillin
CPT/HCPCS: 51702; 99284; A4606; Z7610

== ENCOUNTER 2017-08-13 20:21 | Inpatient (IN) | payer MEDICAID ==
[~2017-08-13] VITALS: Ht 177.8 cm; Wt 82.6 kg
--- NOTE | 2017-08-13 20:45 | NUR ---
[facility] FROM DIALYSIS FOR FEVER. PT GIVEN TYLENOL SURVEY INTERVIEWER. PT AOX3 RR EVEN AND UNLABORED. NO SOB NOTED. NAD NOTED. NO NVD AT THIS TIME. PTNOT DIAPHORETIC. PT GOWNED AND PLACED ON MONITOR WAITING FOR MD NIXON.
--- NOTE | 2017-08-13 20:46 | NUR ---
PT NOTED WITH F/C INTACT AND PATENT DRAINING WELL.
--- NOTE | 2017-08-13 20:50 | NUR ---
URINE COLLECTED. SENT TO LAB
[2017-08-13 21:16] LABS: CALCIUM, SERUM 8.3 mg/dL (8.5-10.1); CREATININE 2.8 mg/dL (0.6-1.3); POTASSIUM 4.1 mmol/L (3.5-5.1)
[2017-08-13 21:20] LABS: INR 1.01 (0.87-1.13); PROTHROMBIN TIME 10.5 SECS (9.5-12.7)
[2017-08-13 21:21] LABS: ALBUMIN 2.2 g/dL (3.4-5.0); BILIRUBIN,DIRECT 0.1 mg/dL (0.0-0.2); BILIRUBIN,TOTAL 0.4 mg/dL (0.2-1.0); TOTAL PROTEIN, SERUM 6.7 g/dL (6.4-8.2)
[2017-08-13 21:24] LABS: TROPONIN I 0.025 ng/mL (0.00-0.056)
[2017-08-13 21:25] LABS: BASOPHILS % (AUTO) 0.1 % (0.0-2.0); EOSINOPHILS % (AUTO) 0.2 % (0.0-6.0); HEMATOCRIT 26 % (39-51); HEMOGLOBIN 8.8 g/dL (13.5-17.5); LYMPHOCYTES # (AUTO) 1.2 /CMM (0.8-4.8); MEAN CORPUSCULAR HEMOGLOBIN 30 PG (26.0-33.0); MEAN CORPUSCULAR HGB CONC 34 g/dl (31.0-36.0); MEAN CORPUSCULAR VOLUME 90 fL (80-96); MONOCYTES # (AUTO) 1.9 /CMM (0.1-1.30); MONOCYTES % (AUTO) 7.9 % (2.0-12.0); NEUTROPHILS # (AUTO) 21.1 /CMM (1.8-8.9); NEUTROPHILS % (AUTO) 86.8 % (43.0-81.0); PLATELET COUNT (AUTO) 315 /CMM (150-450); RDW COEFFICIENT OF VARIATION 13.4 (11.5-15.0); RED BLOOD CELL COUNT(AUTO) 2.91 MIL/uL (4.5-6.0); WHITE BLOOD COUNT (AUTO) 24.2 K/uL (4.3-11.0)
[2017-08-13] MEDS ORDERED: VANCOMYCIN 1 GM in IV D5W 250 ML IV ONE (22:00)
[2017-08-13] MEDS ORDERED: CEFTAZIDIME 1 G in IV D5W 50 ML IV ONE (22:00)
[2017-08-13] MEDS ORDERED: CEFTAZIDIME 1 G VIAL ONE (22:03)
--- NOTE | 2017-08-13 22:07 | NUR ---
ER TALKING TO DR. JALLOH REGARDING PT ADMISSION.
--- NOTE | 2017-08-13 22:08 | NUR ---
CALLED DR JALLOH ON THE PHONE WITH DR RHODES.
[2017-08-13 22:12] LABS: APPEARANCE,URINE CLOUDY (CLEAR); BILIRUBIN,URINE NEGATIVE (NEGATIVE); BLOOD, URINE 3+ Ery/uL (NEGATIVE); COLOR,URINE YELLOW (YELLOW); KETONES,URINE TRACE (NEGATIVE); LEUKOCYTE ESTERASE ,URINE 1+ (NEGATIVE); NITRITE, URINE NEGATIVE (NEGATIVE); PROTEIN,URINE 3+ mg/dl (NEGATIVE); UGLUCOSE NEGATIVE (NEGATIVE); UROBILINOGEN,URINE 0.2 EU/dL (0.2)
--- NOTE | 2017-08-13 22:12 | NUR ---
REPORT CALLED TO DIRECTOR VIDEO AUGUSTIN. WILL TRANSPORT PT VIA ACLS PROTOCOL. ER MD SPOKE TO DR. JALLOH WITH ADMISSION ORDERS RECEIVED. WILL CARRY OUT ORDERS.
--- NOTE | 2017-08-13 22:14 | NUR ---
VANCOMYCIN 1GM ENDORSED TO FINAL ASSEMBLERMADI RUFFIN.
[2017-08-13] MEDS ORDERED: VANCOMYCIN 1 GM VIAL ONE ×2 (22:15→22:17)
[2017-08-13 22:32] LABS: BACTERIA,URINE Few /HPF (None Seen)
[2017-08-13 22:33] LABS: SQUAMOUS EPITHELIAL CELL,UR Rare /HPF (None Seen); WBC,URINE 51-80 /HPF (0-3)
--- NOTE | 2017-08-13 23:38 | NUR ---
PT TRASNFERRED VIA GURNEY TO TELE 327
[2017-08-14] VITALS: BP 140/71
--- NOTE | 2017-08-14 | NUR ---
BILLING AND ACCOUNTING STAFF ASSISTANTMETAL FORGER'S ASSISTANT NOTES ADMITTED THIS 57Y.O. MALE FROM ER PER ANNAMARIA UNDER THE SERVICE OF DR JALLOH.A RESIDENT OF [facility],CAME FROM DIALYSIS CENTER,BROUGHT HER DUE TO FEVER.A/O X 1-2,AFEBRILE 97.8 UPON ARRIVAL ON THE UNIT,APPEARS CONFUSED,NEEDS CONSTANT RE-ORIENTATION.WITH DÍAZ CATH INSERTED IN ER,SALINE LOC LEFT FOREARM INTACT AND PATENT.WITH MULTIPLE SKIN ISSUES DOCUMENTED ON INITIAL PHYSICAL ASSESSMENT.CALLED FACILITY FOR MORE RECORD AND INFORMATION.WILL CONTINUE TO MONITOR STATUS.
[2017-08-14 04:00] VITALS: BP 168/75
[2017-08-14 04:28] VITALS: BP 168/75
[2017-08-14] MEDS ORDERED: CLONIDINE HCL 0.1 MG TABLET ONE (04:41)
[2017-08-14] MEDS: CLONIDINE HCL 0.1 MG TABLET PO SCH ×3 (04:47→16:58)
--- NOTE | 2017-08-14 04:47 | NUR ---
FOOD PREPARATION WORKER NOTES BP 168/75,MEDICATED WITH CLONIDINE 0.3 MG PO ORDERED.
--- NOTE | 2017-08-14 06:30 | NUR ---
MS RN NOTES LATEST BP 122/56 POST CLONIDINE.SENT MESSAGE TO DR JALLOH REGARDING MEROPENEM IF HE WANTS TO CONTINUE,PATIENT IS ALLERGIC TO PCN,PATIENT IS DIABETIC,NO ORDER FOR ACCUCHECK,AND CLONIDINE 0.3 MG PO BID,SCHEDULED OR PRN,AWAITNG FOR ANSWER. OTHERWISE STABLE.WILL ENDORSE TO DAY NURSE FOR JIMBO.
[2017-08-14 08:00] VITALS: BP 122/56
[2017-08-14 08:13] LABS: BASOPHILS # (AUTO) 0.1 /CMM (0.0-0.2); BASOPHILS % (AUTO) 0.3 % (0.0-2.0); EOSINOPHILS # (AUTO) 0.1 /CMM (0.0-0.7); EOSINOPHILS % (AUTO) 0.5 % (0.0-6.0); HEMATOCRIT 24 % (39-51); HEMOGLOBIN 7.7 g/dL (13.5-17.5); LYMPHOCYTES # (AUTO) 0.9 /CMM (0.8-4.8); LYMPHOCYTES % (AUTO) 4.9 % (20.0-44.0); MEAN CORPUSCULAR HEMOGLOBIN 29 PG (26.0-33.0); MEAN CORPUSCULAR HGB CONC 32 g/dl (31.0-36.0); MEAN CORPUSCULAR VOLUME 91 fL (80-96); MONOCYTES # (AUTO) 1.6 /CMM (0.1-1.30); MONOCYTES % (AUTO) 8.2 % (2.0-12.0); NEUTROPHILS # (AUTO) 16.8 /CMM (1.8-8.9); NEUTROPHILS % (AUTO) 86.1 % (43.0-81.0); PLATELET COUNT (AUTO) 261 /CMM (150-450); RDW COEFFICIENT OF VARIATION 14.1 (11.5-15.0); RED BLOOD CELL COUNT(AUTO) 2.65 MIL/uL (4.5-6.0); WHITE BLOOD COUNT (AUTO) 19.5 K/uL (4.3-11.0)
[2017-08-14 08:42] LABS: CALCIUM, SERUM 7.8 mg/dL (8.5-10.1); CREATININE 3.5 mg/dL (0.6-1.3); POTASSIUM 4.1 mmol/L (3.5-5.1)
[2017-08-14] MEDS ORDERED: FEE PK DOSING 1 MIN EA MC ONE (09:43)
--- NOTE | 2017-08-14 10:00 | NUR ---
MS RN NOTES SPOKE TO DR. JALLOH CONFIRMED THAT PATIENT HAS ALLERGIES PCN STATES OK TO GIVE ANTIBIOTICS JUST MONITOR FOR ALLERGIC REACTION.
--- NOTE | 2017-08-14 10:15 | NUR ---
MS RN NOTES PATIENT SEEN AND EVALUATED BY DR. JALLOH. ORDERS NOTED AND CARRIED OUT.
[2017-08-14] MEDS: MEROPENEM 500 MG in IV NS 0.9% 50 ML IV SCH ×2 (10:34→21:56)
--- NOTE | 2017-08-14 11:00 | NUR ---
MS RN NOTES PATIENT REFUSES TO BE TURNED AND REPOSITIONED WILL CONTINUE TO EDUCATE AND ENCOURAGE.
[2017-08-14] MEDS: BLOOD SUGAR DIAGNOSTIC 1 EACH STRIP IN SCH ×3 (12:10→21:54)
[2017-08-14] MEDS ORDERED: Z GUARD REMEDY 2 OZ OINT TP PRN (13:00)
--- NOTE | 2017-08-14 13:00 | NUR ---
MS RN NOTES PATIENTS AT BEDSIDE AGREES TO BE CHANGED AND TURNED WITH WIFES ENCOURAGEMENT.
--- NOTE | 2017-08-14 13:02 | NUR ---
WOUND CARE CONSULT: PT HAVING DIALYSIS AT THIS TIME. PT HAS FOOT WOUNDS. RECOMMENDATIONS MADE FOR FEET BASED ON PHOTO DOCUMENTATION AND PREVIOUS ADMISSION. WILL SEE PT PT CONDITION PERMITS. ALL SKIN PROTECTION AND WOUND RECOMMENDATIONS DISCUSSED WITH NURSING STAFF. MD IN AGREEMENT WITH PLAN OF CARE.
[2017-08-14] MEDS ORDERED: EPOETIN ALFA (10,000 UNIT) 10,000 UNIT/ML VIAL SQ ONE (14:00)
[2017-08-14] MEDS: hydrALAZINE HCL 50 MG TABLET PO SCH ×2 (14:18→16:56)
[2017-08-14] MEDS: Z GUARD REMEDY 2 OZ OINT TP SCH (14:21)
[2017-08-14] MEDS: CADEXOMER IODINE 40 GM TUBE TP SCH (14:22)
[2017-08-14 16:00] VITALS: BP 131/63
[2017-08-14] MEDS: VANCOMYCIN 500 MG in IV D5W 100 ML IV PRN (16:01)
--- NOTE | 2017-08-14 19:25 | NUR ---
RN OPEN NOTES RECEIVED PATIENT RESTING IN BED, EASILY AROUSABLE. A/O X1. NO SIGNS OF DISTRESS OR DISCOMFORT. BREATHING EVEN AND UNLABORED. ON 3LPM O2 VIA NC. F/C INTACT, WITH CLOUDY YELLOW FLUID NOTED. IV ACCESS IN LFA PATENT AND INTACT, NO SIGNS OF REDNESS OR INFILTRATION. BED IN LOW LOCKED POSITION WITH SIDE RAILS X2. CALL LIGHT WITHIN REACH. WILL CONTINUE TO MONITOR.
--- NOTE | 2017-08-14 19:38 | NUR ---
MS RN NOTES PATIENT IN BED RESTING NO SOB OR ACUTE DISTRESS NOTED. ALL DUE MEDICATIONS ADMINISTERED. ALL NEEDS MET WILL ENDORSE TO PM SHIFT JIMBO.
[2017-08-14 20:00] VITALS: BP 125/55
[2017-08-14] MEDS: CARVEDILOL 12.5 MG TABLET PO SCH (21:55)
[2017-08-14] MEDS ORDERED: ZOLPIDEM TARTRATE 10 MG TABLET PO PRN (22:00)
[2017-08-14] MEDS ORDERED: INSULIN DETEMIR 100 UNIT/ML CARTRIDGE SQ SCH (22:00)
[2017-08-15] MEDS: BLOOD SUGAR DIAGNOSTIC 1 EACH STRIP IN SCH ×4 (06:32→21:13)
[2017-08-15] MEDS ORDERED: DEXTROSE 50%-WATER 50 ML DISP.SYRIN ONE (06:34)
[2017-08-15] MEDS: DEXTROSE 50%-WATER 50 ML DISP.SYRIN IVP PRN ×2 (06:55→12:15)
--- NOTE | 2017-08-15 06:55 | NUR ---
RN NOTES PATIENT BS 45. PATIENT IN STABLE CONDITION NO S/S OF DISTRESS. ADMINISTERED 50 ML DEXTROSE 50% IVP PER PROTOCOL. MD NOTIFIED. WILL CONTINUE TO MONITOR AND REASSESS.
--- NOTE | 2017-08-15 07:10 | NUR ---
RN NOTES REASSESSED PATIENT BS 101. MD NOTIFIED. WILL CONTINUE TO MONITOR.
--- NOTE | 2017-08-15 07:30 | NUR ---
RN OPENING NOTES RECEIVED PATIENT RESTING IN BED, AROUSES EASILY. NO S/S OF DISTRESS, NO SOB NOTED. NO S/S OF HYPOGLYCEMIA. ON 3LPM O2 VIA NC. F/C IN PLACE, WITH CLOUDY YELLOW FLUID NOTED. IV ACCESS IN LFA PATENT AND INTACT, NO SIGNS OF REDNESS OR INFILTRATION. BED IN LOW POSITION, LOCKED, SIDE RAILS X2. CALL LIGHT WITHIN REACH. WILL CONTINUE TO MONITOR ACCORDINGLY.
--- NOTE | 2017-08-15 07:41 | NUR ---
RN CLOSING NOTES PATIENT RESTING IN BED, EASILY AROUSABLE. A/O X1. NO SIGNS OF DISTRESS OR DISCOMFORT. BREATHING EVEN AND UNLABORED. NO S/S OF HYPOGLYCEMIA. ON 3LPM O2 VIA NC. F/C INTACT, WITH CLOUDY YELLOW FLUID NOTED. IV ACCESS IN LFA PATENT AND INTACT, NO SIGNS OF REDNESS OR INFILTRATION. ALL NEEDS MET. NO SIGNIFICANT CHANGES THROUGH THE NIGHT. PATIENT REPOSITIONED Q2H. BED IN LOW LOCKED POSITION WITH SIDE RAILS X2. CALL LIGHT WITHIN REACH. ENDORSED TO AM SHIFT FOR JIMBO.
[2017-08-15 08:00] VITALS: BP 118/51
[2017-08-15 08:12] VITALS: BP 118/51
[2017-08-15 08:22] LABS: CALCIUM, SERUM 7.7 mg/dL (8.5-10.1); CREATININE 4.2 mg/dL (0.6-1.3); MAGNESIUM 2.1 mg/dL (1.8-2.4); PHOSPHORUS 4.4 mg/dL (2.5-4.9); POTASSIUM 3.8 mmol/L (3.5-5.1)
[2017-08-15 08:32] LABS: BASOPHILS % (AUTO) 0.2 % (0.0-2.0); HEMATOCRIT 23 % (39-51); HEMOGLOBIN 7.3 g/dL (13.5-17.5); LYMPHOCYTES # (AUTO) 0.9 /CMM (0.8-4.8); LYMPHOCYTES % (AUTO) 5.1 % (20.0-44.0); MEAN CORPUSCULAR HEMOGLOBIN 29 PG (26.0-33.0); MEAN CORPUSCULAR HGB CONC 32 g/dl (31.0-36.0); MEAN CORPUSCULAR VOLUME 92 fL (80-96); MONOCYTES # (AUTO) 1.7 /CMM (0.1-1.30); MONOCYTES % (AUTO) 9.9 % (2.0-12.0); NEUTROPHILS # (AUTO) 14.6 /CMM (1.8-8.9); NEUTROPHILS % (AUTO) 84.8 % (43.0-81.0); PLATELET COUNT (AUTO) 254 /CMM (150-450); RDW COEFFICIENT OF VARIATION 13.9 (11.5-15.0); RED BLOOD CELL COUNT(AUTO) 2.47 MIL/uL (4.5-6.0); WHITE BLOOD COUNT (AUTO) 17.2 K/uL (4.3-11.0)
[2017-08-15] MEDS: CARVEDILOL 12.5 MG TABLET PO SCH ×2 (09:00→21:12)
[2017-08-15] MEDS: hydrALAZINE HCL 50 MG TABLET PO SCH ×3 (09:00→17:27)
[2017-08-15] MEDS: AMLODIPINE BESYLATE 10 MG TABLET PO SCH (09:00)
[2017-08-15] MEDS: CLONIDINE HCL 0.1 MG TABLET PO SCH ×2 (09:00→17:28)
[2017-08-15] MEDS: CADEXOMER IODINE 40 GM TUBE TP SCH (09:00)
--- NOTE | 2017-08-15 09:00 | NUR ---
RN NOTES HP=[id number], HR=59. NORVASC, COREG, CATAPRES, APRESOLINE HELD. WILL CONTINUE TO MONITOR ACCORDINGLY.
[2017-08-15] MEDS: MEROPENEM 500 MG in IV NS 0.9% 50 ML IV SCH ×2 (09:32→21:12)
[2017-08-15] MEDS: FUROSEMIDE 40 MG TABLET PO SCH (09:45)
[2017-08-15] MEDS: ASPIRIN EC 81 MG TABLET.DR PO SCH (09:45)
[2017-08-15] MEDS: ATORVASTATIN 10 MG TABLET PO SCH (09:45)
[2017-08-15] MEDS: FLUCONAZOLE (100 MG) 100 MG TABLET PO SCH (10:22)
--- NOTE | 2017-08-15 10:23 | NUR ---
WOUND CARE CONSULT: PT REFUSED SKIN ASSESSMENT EXCEPT FOR FEET. PT HAS ULCERS TO BILATERAL FEET, PRESENT ON ADMISSION. RECOMMEND DPM CONSULT, CONTINUE PRESENT TREATMENT FOR ULCERS. DISCUSSED SKIN PROTECTION WITH NURSING STAFF. PT ON [employer] COMFORT GEL MATTRESS. ALL SKIN PROTECTION MEASURES IN PLACE. WILL SEE PRN. DESIR IN AGREEMENT WITH PLAN OF CARE. Addendum: 08/15/17 at 1026 by PERCY CHAMPION [email or web address] CURRENT OPAL SCORE IS 13. Addendum: 08/15/17 at 1027 by PERCY CHAMPION WNDNU Amended: Links added. Addendum: 08/15/17 at 1057 by PERCY CHAMPION WNDNU REVIEWED PHOTO DOCUMENTATION AND CORRECTION DOCUMENTATION WHICH SHOWS AT LEAST PARTIAL THICKNESS PRESSURE ULCER TO RT BUTTOCK WITH SACRAL SCARRING NOTED TO BE PRESENT ON ADMISSION. PT CONTINUES TO REFUSE SKIN ASSESSMENT. TREATMENT RECOMMENDATIONS BASED ON PHOTO IMAGES. DISCUSSED WITH NURSING STAFF AND MD. DESIR IN AGREEMENT WITH PLAN OF CARE AND TREATMENT PLAN. Addendum: 08/15/17 at 1126 by PERCY CHAMPION WNDNU DAVID ISOFLEX LOW AIRLOSS BED TO BE PLACED WHEN AVAILABLE. DISCUSSED WITH NURSING STAFF.
[2017-08-15] MEDS: Z GUARD REMEDY 2 OZ OINT TP SCH (10:24)
[2017-08-15] MEDS ORDERED: HYDROGEL DRESSING 90 GM TUBE TP PRN (11:00)
--- NOTE | 2017-08-15 12:00 | NUR ---
RN NOTES BS 46, D50 GIVEN, WILL RECHECK AND MONITOR ACCORDINGLY.
--- NOTE | 2017-08-15 13:00 | NUR ---
RN NOTES BS RECHECKED, BS 100. WILL CONTINUE TO MONITOR ACCORDINGLY.
[2017-08-15] MEDS: HYDROGEL DRESSING 90 GM TUBE TP SCH (14:03)
[2017-08-15 16:00] VITALS: BP 139/63
--- NOTE | 2017-08-15 16:00 | NUR ---
RN NOTES ATTEMPTED 3X TO DO SKIN ASSESSMENT AND WOUND CARE, AND DIAPER CHANGE TO PATIENT. PATIENT STILL REFUSED TO HAVE SKIN ASSESSMENT AND WOUND CARE DONE. EXPLAIN THE BENEFITS AND RISK BUT STILL REFUSED SAYING "IM OK!". STILL REFUSED DIAPER CHANGE SAYING "I DONT NEED TO BE CHANGED!". ON BEDSIDE PERSUADING PATIENT TO COOPERATE BUT PATIENT SAID "NO!". NOTIFIED DENTURE CONTOUR WIRE SPECIALIST. WILL CONTINUE TO MONITOR ACCORDINGLY.
--- NOTE | 2017-08-15 16:30 | NUR ---
RN NOTES PATIENT REFUSED TO BE TRANSFERRED TO ISO FLEX BED. EXPLAINED THE PATIENT THE RISK AND BENEFITS OF USING ISO FLEX BED BUT STILL REFUSED SAYING "IM OKAY HERE! I DONT NEED TO BE TRANSFERRED!". NOTIFIED ABLE SEAMAN.
[2017-08-15] MEDS: LACTOBACILLUS RHAMNOSUS GG 1 EACH CAP.SPRINK PO SCH (17:26)
[2017-08-15] MEDS: ACETAMINOPHEN 325 MG TABLET PO PRN (19:12)
--- NOTE | 2017-08-15 19:20 | NUR ---
RN OPEN NOTES PATIENT AWAKE IN BED, EASILY AROUSABLE. A/O X1. NO SIGNS OF DISTRESS OR DISCOMFORT. BREATHING EVEN AND UNLABORED. ON 3LPM O2 VIA NC. F/C INTACT, WITH CLOUDY YELLOW FLUID NOTED. IV ACCESS IN LFA PATENT AND INTACT, NO SIGNS OF REDNESS OR INFILTRATION. BED IN LOW LOCKED POSITION WITH SIDE RAILS X2. CALL LIGHT WITHIN REACH. WILL CONTINUE TO MONITOR.
--- NOTE | 2017-08-15 19:30 | NUR ---
RN CLOSING NOTES PATIENT IN BED RESTING. NO ACUTE DISTRESS, NO SOB NOTED. ALL NEEDS ATTENDED AND PROVIDED. KEPT PATIENT SAFE AND COMFORTABLE. BED IN LOW POSITION, LOCKED, SIDERAILS UP X2, CALL LIGHT IN REACH. ENDORSED TO NIGHT RN FOR JIMBO.
[2017-08-15 20:00] VITALS: BP 129/58
[2017-08-15] MEDS: INSULIN DETEMIR 100 UNIT/ML CARTRIDGE SQ SCH (21:14)
[2017-08-16] MEDS: BLOOD SUGAR DIAGNOSTIC 1 EACH STRIP IN SCH ×4 (06:20→21:30)
--- NOTE | 2017-08-16 06:59 | NUR ---
RN CLOSING NOTES PATIENT AWAKE IN BED, EASILY AROUSABLE. A/O X1. NO SIGNS OF DISTRESS OR DISCOMFORT. BREATHING EVEN AND UNLABORED. ON 3LPM O2 VIA NC. F/C INTACT, WITH CLOUDY YELLOW FLUID NOTED. IV ACCESS IN L HAND PATENT AND INTACT, NO SIGNS OF REDNESS OR INFILTRATION. ALL NEEDS MET. NO SIGNIFICANT CHANGES THROUGH THE NIGHT. PATIENT REPOSITIONED Q2H AND TRANSFERRED TO ISOFLEX MATTRESS. BED IN LOW LOCKED POSITION WITH SIDE RAILS X2. CALL LIGHT WITHIN REACH. WILL ENDORSE TO AM SHIFT FOR JIMBO.
[2017-08-16 07:03] LABS: BASOPHILS % (AUTO) 0.2 % (0.0-2.0); EOSINOPHILS # (AUTO) 0.2 /CMM (0.0-0.7); EOSINOPHILS % (AUTO) 1.2 % (0.0-6.0); HEMATOCRIT 24 % (39-51); HEMOGLOBIN 7.9 g/dL (13.5-17.5); LYMPHOCYTES % (AUTO) 6.3 % (20.0-44.0); MEAN CORPUSCULAR HEMOGLOBIN 30 PG (26.0-33.0); MEAN CORPUSCULAR HGB CONC 33 g/dl (31.0-36.0); MEAN CORPUSCULAR VOLUME 91 fL (80-96); MONOCYTES # (AUTO) 1.4 /CMM (0.1-1.30); MONOCYTES % (AUTO) 8.7 % (2.0-12.0); NEUTROPHILS # (AUTO) 13.8 /CMM (1.8-8.9); NEUTROPHILS % (AUTO) 83.6 % (43.0-81.0); PLATELET COUNT (AUTO) 325 /CMM (150-450); RDW COEFFICIENT OF VARIATION 14.2 (11.5-15.0); RED BLOOD CELL COUNT(AUTO) 2.67 MIL/uL (4.5-6.0); WHITE BLOOD COUNT (AUTO) 16.5 K/uL (4.3-11.0)
[2017-08-16 07:26] LABS: CREATININE 4.9 mg/dL (0.6-1.3); MAGNESIUM 2.2 mg/dL (1.8-2.4); POTASSIUM 4.1 mmol/L (3.5-5.1)
--- NOTE | 2017-08-16 07:35 | NUR ---
MS RN OPENING NOTE PATIENT IS ALERT AND ORIENTED x2. NO PAIN AT THIS TIME. NO SOB OR DISTRESS NOTED. CALL LIGHT WITHIN REACH. SAFETY MEASURES IMPLEMENTED. ABLE TO COMMUNICATE NEEDS. DÍAZ IN PLACE. IV ON LEFT HAND INTACT AND PATENT FLUSHES WELL. CURRENTLY RECEIVING HEMODIALYSIS. WOUND TREATMENT TO BE DONE. ON 3L/MIN OF OXYGEN VIA NASAL CANNULA. WILL CONTINUE TO MONITOR
[2017-08-16 08:00] VITALS: BP 135/67
[2017-08-16] MEDS: CARVEDILOL 12.5 MG TABLET PO SCH ×2 (08:22→20:57)
[2017-08-16] MEDS: hydrALAZINE HCL 50 MG TABLET PO SCH ×3 (08:22→16:40)
[2017-08-16] MEDS: AMLODIPINE BESYLATE 10 MG TABLET PO SCH (08:22)
[2017-08-16] MEDS: CLONIDINE HCL 0.1 MG TABLET PO SCH ×2 (08:22→16:40)
[2017-08-16] MEDS: FLUCONAZOLE (100 MG) 100 MG TABLET PO SCH (08:47)
[2017-08-16] MEDS: FUROSEMIDE 40 MG TABLET PO SCH (08:47)
[2017-08-16] MEDS: LACTOBACILLUS RHAMNOSUS GG 1 EACH CAP.SPRINK PO SCH ×2 (08:47→16:40)
[2017-08-16] MEDS: ASPIRIN EC 81 MG TABLET.DR PO SCH (08:48)
[2017-08-16] MEDS: ATORVASTATIN 10 MG TABLET PO SCH (08:48)
[2017-08-16] MEDS: HYDROGEL DRESSING 90 GM TUBE TP SCH (08:48)
[2017-08-16] MEDS: CADEXOMER IODINE 40 GM TUBE TP SCH (08:49)
[2017-08-16] MEDS: Z GUARD REMEDY 2 OZ OINT TP SCH (08:49)
[2017-08-16] MEDS: MEROPENEM 500 MG in IV NS 0.9% 50 ML IV SCH ×2 (09:15→21:47)
[2017-08-16] MEDS ORDERED: EPOETIN ALFA (10,000 UNIT) 10,000 UNIT/ML VIAL SQ ONE (10:00)
[2017-08-16] MEDS: VANCOMYCIN 500 MG in IV D5W 100 ML IV PRN (10:14)
[2017-08-16] MEDS: HYDROCODONE/APAP 5/325MG 1 EACH TABLET PO PRN (13:50)
[2017-08-16 16:00] VITALS: BP 136/65
--- NOTE | 2017-08-16 18:44 | NUR ---
MS RN CLOSING NOTE PATIENT IS ALERT AND ORIENTED x2. NO PAIN AT THIS TIME. NO SOB OR DISTRESS NOTED. CALL LIGHT WITHIN REACH AT ALL TIMES. SAFETY MEASURES IMPLEMENTED. ABLE TO COMMUNICATE NEEDS. ALL DUE MEDICATIONS GIVEN ORDERED. DÍAZ CATHETER IN PLACE-750 OUTPUT. RECEIVED VANCO AND EPOGEN THIS MORNING AFTER HD. WOUND DRESSING CHANGED, DRESSINGS INTACT. BLOOD SUGARS MONITORED THROUGHOUT SHIFT. IV ON LEFT HAND INTACT AND PATENT NO REDNESS OR SWELLING NOTED. WILL ENDORSE TO ROLL CLAMP OPERATOR FOR JIMBO
--- NOTE | 2017-08-16 19:09 | NUR ---
ms/rn opening notes patient in bed resting comfortably in bed. no pain observed and verbalized. Respirations even and unlabored. skin intact and dry. ortega catheter draining. call lights within reach. will continue to monitor.
[2017-08-16 20:00] VITALS: BP 114/55
[2017-08-16] MEDS: INSULIN DETEMIR 100 UNIT/ML CARTRIDGE SQ SCH (21:49)
--- NOTE | 2017-08-17 06:00 | NUR ---
ms/rn notes PATIENT REFUSED TO BE CHANGED, PATIENT DOES NOT WANT TO CHANGE GOWN NOR DRESSING ON BUTTOCKS.
--- NOTE | 2017-08-17 06:34 | NUR ---
MS/RN NOTES PATIENT REFUSED TO HAVE BLOOD SUGAR CHECK, ALSO BLOOD DRAW AT THIS TIME WILL INFORM AM RN.
--- NOTE | 2017-08-17 06:37 | NUR ---
MS/RN CLOSING NOTES' PATIENT ABLE TO SLEEP DURING THE NIGHT,BUT REFUSE TO HAVE MORNING CARE AND BE CHANGEM REFUSE BLOOD SUGAR CHECK, REPOSITION FOR COMFORT. WILL CONTINUE MONITORING, LESLEE ENDORSE TO AM
[2017-08-17] MEDS: BLOOD SUGAR DIAGNOSTIC 1 EACH STRIP IN SCH ×4 (06:52→20:56)
--- NOTE | 2017-08-17 06:53 | NUR ---
MS/RN NOTES PATIENT AGREED TO HAVE BLOOD SUGAR CHECK, BS RESULT AT 106
--- NOTE | 2017-08-17 07:30 | NUR ---
MS RN OPENING NOTE PATIENT IS ALERT AND ORIENTED x2. NO PAIN AT THIS TIME. NO SOB OR DISTRESS NOTED. CALL LIGHT WITHIN REACH. SAFETY MEASURES IMPLEMENTED. ABLE TO COMMUNICATE NEEDS. ON 3L/MIN OF OXYGEN VIA NASAL CANNULA, TOLERATING WELL. BLOOD SUGAR TO BE MONITORED THROUGHOUT SHIFT. IV ON RIGHT FOREARM INTACT AND PATENT NO REDNESS OR SWELLING NOTED. HAS RIGHT SUBCLAVIAN DOUBLE LUMEN FOR HD. WILL CONTINUE TO MONITOR THROUGHOUT SHIFT.
[2017-08-17 08:00] VITALS: BP 128/66
[2017-08-17] MEDS: ASPIRIN EC 81 MG TABLET.DR PO SCH (08:30)
[2017-08-17] MEDS: LACTOBACILLUS RHAMNOSUS GG 1 EACH CAP.SPRINK PO SCH ×2 (08:30→16:31)
[2017-08-17] MEDS: ATORVASTATIN 10 MG TABLET PO SCH (08:30)
[2017-08-17] MEDS: FLUCONAZOLE (100 MG) 100 MG TABLET PO SCH (08:30)
[2017-08-17] MEDS: FUROSEMIDE 40 MG TABLET PO SCH (08:30)
[2017-08-17] MEDS: AMLODIPINE BESYLATE 10 MG TABLET PO SCH (08:31)
[2017-08-17] MEDS: CARVEDILOL 12.5 MG TABLET PO SCH ×2 (08:31→20:36)
[2017-08-17] MEDS: hydrALAZINE HCL 50 MG TABLET PO SCH ×3 (08:32→16:31)
[2017-08-17] MEDS: CLONIDINE HCL 0.1 MG TABLET PO SCH ×2 (08:33→16:30)
[2017-08-17] MEDS: Z GUARD REMEDY 2 OZ OINT TP SCH (09:18)
[2017-08-17] MEDS: HYDROGEL DRESSING 90 GM TUBE TP SCH (09:18)
[2017-08-17] MEDS: CADEXOMER IODINE 40 GM TUBE TP SCH (09:19)
[2017-08-17] MEDS: MEROPENEM 500 MG in IV NS 0.9% 50 ML IV SCH ×2 (09:33→21:06)
[2017-08-17 09:47] LABS: BASOPHILS % (AUTO) 0.4 % (0.0-2.0); EOSINOPHILS # (AUTO) 0.3 /CMM (0.0-0.7); EOSINOPHILS % (AUTO) 2.5 % (0.0-6.0); HEMATOCRIT 23 % (39-51); HEMOGLOBIN 7.4 g/dL (13.5-17.5); LYMPHOCYTES # (AUTO) 0.9 /CMM (0.8-4.8); LYMPHOCYTES % (AUTO) 7.4 % (20.0-44.0); MEAN CORPUSCULAR HEMOGLOBIN 29 PG (26.0-33.0); MEAN CORPUSCULAR HGB CONC 33 g/dl (31.0-36.0); MEAN CORPUSCULAR VOLUME 90 fL (80-96); MONOCYTES # (AUTO) 1.3 /CMM (0.1-1.30); MONOCYTES % (AUTO) 10.6 % (2.0-12.0); NEUTROPHILS # (AUTO) 9.8 /CMM (1.8-8.9); NEUTROPHILS % (AUTO) 79.1 % (43.0-81.0); PLATELET COUNT (AUTO) 330 /CMM (150-450); RDW COEFFICIENT OF VARIATION 13.6 (11.5-15.0); RED BLOOD CELL COUNT(AUTO) 2.54 MIL/uL (4.5-6.0); WHITE BLOOD COUNT (AUTO) 12.4 K/uL (4.3-11.0)
[2017-08-17] MEDS: HEPARIN SODIUM, PORCINE 5000 UNITS/1 ML VIAL SQ SCH ×2 (10:00→19:34)
[2017-08-17 10:01] LABS: CALCIUM, SERUM 7.6 mg/dL (8.5-10.1); CREATININE 4.7 mg/dL (0.6-1.3)
--- NOTE | 2017-08-17 11:13 | NUR ---
MS RN NOTE PATIENT IS REFUSING CHANGING, TURNING AND REPOSITIONING. PATIENT BEGAN TO HIT FEDERICA GARCIA. I EXPLAINED TO PATIENT THAT WE ARE TRYING TO HELP HIM AND OFFERED A BED BATH AND CHANGE GOWN/ SHEETS. PATIENT REFUSED AND SAID " IF HE COMES NEAR ME I WILL HIT HIM". AGAIN I EXPLAINED TO PATIENT THAT WE ARE ONLY TRYING TO HELP AND INFORMED HIM THAT WE WILL RESPECT HIS WORD. INFORMED CHARGE NURSE
--- NOTE | 2017-08-17 14:44 | NUR ---
MS RN NOTE PATIENT IS REFUSING CONTINUITY OF CARE AND MEDICATIONS, MYSELF AND (SUHAIL) EXPLAINED RISKS AND BENEFITS OF REFUSING TREATMENT. PATIENT STILL REFUSED MEDICATION. INFORMED CHARGE AND MD ( DR. JALLOH).
[2017-08-17 16:00] VITALS: BP 122/60
--- NOTE | 2017-08-17 18:34 | NUR ---
MS RN CLOSING NOTE PATIENT IS ALERT AND ORIENTED x2. NO PAIN AT THIS TIME. NO SOB OR DISTRESS NOTED. CALL LIGHT WITHIN REACH AT ALL TIMES. SAFETY MEASURES IMPLEMENTED. ABLE TO COMMUNICATE NEEDS. PATIENT REFUSED SOME AFTERNOON MEDICATIONS, EXPLAINED RISKS AND BENEFITS BUT PATIENT STILL REFUSED. PATIENT REFUSED WOUND TREATMENT AND TO HAVE BED BATH AND HAVE GOWN CHANGED. BECAME AGGRESSIVE WITH MYSELF AND NEURORADIOLOGIST WHO TRIED TO HELP AND EXPLAINED THINGS TO HIM. PATIENT THEN STATED HE WOULD HIT ANYONE WHO TRIED TO ASSIST HIM. WILL HAVE HEMODIALYSIS TOMORROW 08/19. DÍAZ CATHETER IN PLACE-300 OUTPUT. BLOOD SUGAR MONITORED, NO INSULIN NEEDED. WILL HAVE VANCO TROUGH DONE 08/18. HEPARIN HELD DUE TO LOW HGB-7.4 ON 3L/MIN OF OXYGEN VIA NASAL CANNULA TOLERATING WELL. WILL ENDORSE TO BODY FITTER NURSE FOR JIMBO
[2017-08-17] MEDS: HYDROCODONE/APAP 5/325MG 1 EACH TABLET PO PRN (19:07)
--- NOTE | 2017-08-17 19:18 | NUR ---
MS/RN NOTES PATIENT PROVIDED WOUND CARE ON BILATERAL FOOT. APPLY MEPILEX AND COVER W/ MEPILEX. PATIENT COOPERATIVE TO CARE.
--- NOTE | 2017-08-17 19:19 | NUR ---
MS/RN OPENING NOTES PATIENT IN BED, ALERT, ORIENTED, REQUESTED TO BE ASSISTED TO MAKE PHONE CALL TO HIS WIFR, ASSISTED, REPORTED PAIN OF 8/10 IN THE BACK AND AM RN GAVE MEDICATION FOR PAIN AND WILL MONITOR FOR EFFECTIVENESS,RESPIRATIONS EVEN AND UNLABORED, INFORM FOR DRESSING NEED TO BE CHANGE, WILL FOLLOW DURING THE SHIFT. WILL CONTINUE TO MONITOR.
--- NOTE | 2017-08-17 19:34 | NUR ---
MS/RN NOTES TO HOLD HEPARIN 500 UNITS WITH LOW HGB LEVEL AT 7.4. MONITORING FOR ANY S/S OF BLEEDING PER PROTOCOL MD MADE AWARE.
[2017-08-17 20:00] VITALS: BP 130/72
[2017-08-17 20:20] VITALS: BP 130/72
[2017-08-17] MEDS: ACETAMINOPHEN 325 MG TABLET PO PRN (20:31)
--- NOTE | 2017-08-17 20:34 | NUR ---
MS/RN NOTES PATIENT REPORTED PAIN ON BACK AND REQUESTED FOR TYLENOL TO RELIEVE PAIN, B/P CHECK AND PULSE RATE BELOW 60 TO HOLD B/P MED AT THIS TIME.
--- NOTE | 2017-08-17 21:00 | NUR ---
ms/rn notes PATIENT REPORTED INABILITY TO SLEEP AND REQUESTING FOR MED FOR SLEEP. WILL MONITOR EFFECTIVENESS OF SLEEPING MED.
[2017-08-17] MEDS: INSULIN DETEMIR 100 UNIT/ML CARTRIDGE SQ SCH (21:15)
--- NOTE | 2017-08-18 05:55 | NUR ---
MS/RN NOTES PATIENT REFUSE TO BE REPOSITION AND REFUSE TO BE CHANGED.
[2017-08-18 06:38] LABS: CALCIUM, SERUM 7.4 mg/dL (8.5-10.1); POTASSIUM 4.1 mmol/L (3.5-5.1)
[2017-08-18] MEDS: BLOOD SUGAR DIAGNOSTIC 1 EACH STRIP IN SCH ×4 (06:58→21:29)
--- NOTE | 2017-08-18 07:05 | NUR ---
[id number] patient able to sleep during the night. respirations even and unlabored. Osborne catheter draining. wound care done on bilateral legs, dressing intact. IV site RFA patent w/ no s/s of infiltration. patient provided fluids. pablo endorse to am rn for rayo. Continue monitoring. Call lights within reach. Bed in lock position. IV atb admnistered w/ no s/s of adverse reaction.
--- NOTE | 2017-08-18 07:41 | NUR ---
MS RN: INITIAL NOTE RECEIVED PT A/OX2. ON 3L NC SATING AT 95%. NO DISTRESS NOTED. NO SOB NOTED. NO PAIN NOTED. DÍAZ CATH IN PLACE AND DRAINING. ON HEMODIALYSIS. BEDREST. ON RENAL/CCHO DIET. RFA #[id number] IV. R SUBCLAVIAN PORTABLE LUMEN. SITE CLEAR AND DRESSING INTACT. RESTING COMFORTABLY IN BED. CALL LIGHT WITHIN REACH.
[2017-08-18 08:00] VITALS: BP 129/61
[2017-08-18] MEDS: hydrALAZINE HCL 50 MG TABLET PO SCH ×3 (09:00→17:24)
[2017-08-18] MEDS: CARVEDILOL 12.5 MG TABLET PO SCH ×2 (09:00→21:00)
--- NOTE | 2017-08-18 09:30 | NUR ---
MORNING MEDICATIONS HELD DUE TO DIALYSIS. AWAITING DIALYSIS TO FINISH BEFORE ADMINISTERING MEDICATIONS. PT STABLE. NO DISTRESS NOTED.
--- NOTE | 2017-08-18 10:05 | NUR ---
DIALYSIS COMPLETE. ONE LITER REMOVED. PT STABLE. BP 139/69, PULSE 62.
[2017-08-18] MEDS: AMLODIPINE BESYLATE 10 MG TABLET PO SCH (10:14)
[2017-08-18] MEDS: ATORVASTATIN 10 MG TABLET PO SCH (10:14)
[2017-08-18] MEDS: MEROPENEM 500 MG in IV NS 0.9% 50 ML IV SCH ×2 (10:14→21:30)
[2017-08-18] MEDS: FLUCONAZOLE (100 MG) 100 MG TABLET PO SCH (10:14)
[2017-08-18] MEDS: CLONIDINE HCL 0.1 MG TABLET PO SCH ×2 (10:15→17:23)
[2017-08-18] MEDS: ASPIRIN EC 81 MG TABLET.DR PO SCH (10:15)
[2017-08-18] MEDS: FUROSEMIDE 40 MG TABLET PO SCH (10:15)
[2017-08-18] MEDS: HEPARIN SODIUM, PORCINE 5000 UNITS/1 ML VIAL SQ SCH ×2 (10:16→22:33)
[2017-08-18] MEDS: HYDROGEL DRESSING 90 GM TUBE TP SCH (10:17)
[2017-08-18] MEDS: Z GUARD REMEDY 2 OZ OINT TP SCH (10:17)
[2017-08-18] MEDS: CADEXOMER IODINE 40 GM TUBE TP SCH (10:18)
[2017-08-18] MEDS: LACTOBACILLUS RHAMNOSUS GG 1 EACH CAP.SPRINK PO SCH ×2 (10:20→17:23)
--- NOTE | 2017-08-18 11:22 | NUR ---
PT REFUSED HYDRALAZINE AND COREG IN THE MORNING DUE TO STATING HAVING ALOT OF BLOOD PRESSURE MEDS. ALL RISKS AND BENEFITS EXPLAINED. VS STABLE. BP 139/69, PULSE 62.
[2017-08-18] MEDS ORDERED: EPOETIN ALFA (10,000 UNIT) 10,000 UNIT/ML VIAL SQ ONE (12:00)
[2017-08-18 16:00] VITALS: BP 114/63
[2017-08-18] MEDS: VANCOMYCIN 500 MG in IV D5W 100 ML IV PRN (17:46)
--- NOTE | 2017-08-18 18:45 | NUR ---
MS RN: CLOSING NOTE PT A/OX2. NO DISTRESS NOTED. NO SOB NOTED. ON 3L NC SATING AT 96%. TOOK ALL MEDICATIONS ON TIME. NO ADVERSE REACTIONS NOTED. NO PAIN NOTED. DÍAZ CATH IN PLACE AND DRAINING. OUTPUT IS 600. ON BED REST. EPOGEN ADMINISTERED AFTER DIALYSIS. VANCOMYCIN ADMINISTERED AFTER DIALYSIS ORDERED. 1 LITER OF FLUIDS REMOVED WITH HEMODIALYSIS. WOUND CARE DONE. RESTING COMFORTABLY IN BED. CALL LIGHT WITHIN REACH .
--- NOTE | 2017-08-18 19:45 | NUR ---
RN INITIAL NOTES: RECEIVED REPORT FROM [facility] PT IN BED, AWAKE, A/O X2 ON 2L VIA NC RESPIRATION EVEN AND UNLABORED, C/O LOWER BACK PAIN 02/12 REQUESTING FOR MEDICATION, PT S/P HD TODAY WITH 1L OUTPUT, RIGHT SUBCLAVIAN DOUBLE LUMEN CATHETER IN PLACED, DRESSING C/D/I, RFA IV ACCESS PATENT AND FLUSHING WELL, ON NS AT TKO. BLE OFFLOADED. SAFETY PRECAUTIONS FOR FALL INITIATED CALL LIGHT IN REACH, WILL CONTINUE TO MONITOR
[2017-08-18] MEDS: HYDROCODONE/APAP 5/325MG 1 EACH TABLET PO PRN (19:52)
--- NOTE | 2017-08-18 19:53 | NUR ---
PRN NORCO: PT C/O 10 LOWER BACK PAIN REQUESTING FOR PAIN MEDICATION, PRN NORCO 5/325 MG TAB PO ADMINISTERED TO THE PT AT THIS TIME, EDUCATE PT REGARDING MEDICATION SIDE EFFECT, WILL CONTINUE TO MONITOR AND REASSESS
[2017-08-18 20:00] VITALS: BP 124/61
[2017-08-18 20:16] VITALS: BP 124/61
[2017-08-18] MEDS: INSULIN DETEMIR 100 UNIT/ML CARTRIDGE SQ SCH (21:28)
--- NOTE | 2017-08-18 21:30 | NUR ---
ACCU CHECK: BLOOD SUGAR TAKEN AND REVEAL 188, 10UNITS OF LEVEMIR ADMINISTERED ORDERED, WILL MONITOR PT FOR ANY S/S OF HYPOGLYCEMIA
--- NOTE | 2017-08-18 21:44 | NUR ---
REFUSAL FOR COREG: PT BP IS 130/65 HR 62, PT HAS COREG SCHEDULED FOR TONIGHT, PER PT HE STATED HE'S BP IS NORMAL, HE DOESNT WANT THE MEDICINE, PT S/P HD TODAY, EDUCATION PROVIDED TO THE PT, WILL CONTINUE TO MONITOR VS
--- NOTE | 2017-08-18 22:06 | NUR ---
PAGED DR JALLOH: NOTED PT'S H/H 7.02/25, PT HAS HEPARIN ORDERED FOR TONIGHT, WILL CLARIFY WITH MD IF WOULD LIKE TO HELD THE DOSE OR NOW, PT H/H IS LOW. RISK FOR BLEEDING, CONTACTED DR JALLOH TALKED TO EXCHANGE AWAITING FOR CALL BACK. [phone]
--- NOTE | 2017-08-18 22:12 | NUR ---
RN NOTES: RECEIVED CALL FROM DR JALLOH, RELAYED ABOUT PT'S H/H 7.02/25 CLARIFY IF WOULD LIKE TO GIVE THE HEPARIN OR HOLD DOSE, PER MD, OKAY TO GIVE THE DOSE, ALSO ASKED REGARDING BLOOD CULTURE RESULT, INFORMED MD PRELIMINARY BLOOD CULTURE RESULT 08/14/17 IS NO GROWTH, PER MD TO ORDER 1UNIT OF PRBC THEN CBC BMP MG PHOS IN AM
--- NOTE | 2017-08-18 22:13 | NUR ---
RN NOTES CONTINUATION: RECEIVED CALL FROM DR JALLOH, RELAYED ABOUT PT'S H/H 7.02/25 CLARIFY IF WOULD LIKE TO GIVE THE HEPARIN OR HOLD DOSE, PER , "OKAY TO GIVE THE DOSE", ALSO MD ASKED REGARDING BLOOD CULTURE RESULT, INFORMED PRELIMINARY BLOOD CULTURE RESULT 08/14/17 IS NO GROWTH. ASKED IF PT HAS HD TOMORROW, INFORMED MD THAT PT ALREADY HAVE HD TODAY WITH 1L OUTPUT, AND THERE'S NO ORDER FOR HD TOMORROW, PER MD TO ORDER 1UNIT OF PRBC,THEN CBC BMP MG PHOS IN AM, TRANSFUSE 1UNIT PRBC NOW
--- NOTE | 2017-08-18 22:50 | NUR ---
BLOOD TRANSFUSION CONSENT: CONTACTED SUHAIL ROSALBA, PT'S , INFORMED ABOUT BLOOD TRANSFUSION ORDER 1UNIT FOR PT'S LOW H/H, EXPLAINED ABOUT RISK AND SUHAIL FAM GIVING FULL CONSENT FOR THE BLOOD TRANSFUSION, TELEPHONE CONSENT WITNESSED BY LIGIA KHAN RN.
--- NOTE | 2017-08-18 23:02 | NUR ---
RN NOTES: CONTACTED LAB TO DRAW BLOOD FOR TYPE AND SCREEN
[2017-08-19] VITALS (18 sets, daily range): BP systolic 117–131; BP diastolic 57–83
[2017-08-19] MEDS: ACETAMINOPHEN 325 MG TABLET PO PRN (00:29)
--- NOTE | 2017-08-19 00:30 | NUR ---
PRN TYLENOL: PT C/O 01/12 PAIN ON LOWER BACK REQUESTING FOR TYLENOL, PRN TYLENOL 650MG TAB PO ADMINISTERED TO THE PT AT THIS TIME, ALSO 99.0 TEMP, COOLING MEASURES PROVIDED, WILL CONTINUE TO MONITOR AND REASSESS
--- NOTE | 2017-08-19 00:55 | NUR ---
BLOOD TRANSFUSION: STARTED BLOOD TRANSFUSION AT THIS TIME,1UNIT PRBC ORDERED, VS TAKEN AND RECORDED, WILL STAY WITH THE PT FOR 30MINS TO MONITOR PT FOR ANY S/S OF BLOOD TRANSFUSION REACTION, PRBC STARTED 71ML/HR, TO RUN FOR 4HRS, PT HD PT
--- NOTE | 2017-08-19 01:31 | NUR ---
RN NOTES: NO BLOOD TRANSFUSION REACTION NOTED FOR 30MINS, VS STABLE, PT DENIES ANY SOB, NO WHEEZING, NO ELEVATED TEMP, NO ITCHINESS, WILL CONTINUE MONITORING THE PT
--- NOTE | 2017-08-19 04:21 | NUR ---
RN NOTES: AFTER BLOOD IS FINISHED, NOW IVF NS IS RUNNING AT 20ML/HR, WILL CONTINUE TO MONITOR PT
--- NOTE | 2017-08-19 04:23 | NUR ---
COMPLETION OF BLOOD TRANSFUSION: COMPLETED BLOOD TRANSFUSION AT THIS TIME, VS TAKEN AND RECORDED, NO BLOOD TRANSFUSION REACTION NOTED THROUGHOUT THE PROCESS OF GIVING THE BLOOD. WILL CONTINUE MONITORING PT FOR POST BT REACTION.
--- NOTE | 2017-08-19 05:00 | NUR ---
REFUSAL FOR WOUND CARE AND AM CARE: PT REFUSED TO DO WOUND CARE HE STATED HE'S SO SLEEPY AND BEEN AWAKE DURING THE BLOOD TRANSFUSION AND HE WANTED TO SLEEP FOR NOW, EDUCATION PROVIDED TO THE PT, ALSO HE REFUSED BED BATH AT THIS TIME,
[2017-08-19] MEDS: BLOOD SUGAR DIAGNOSTIC 1 EACH STRIP IN SCH ×2 (06:16→12:04)
--- NOTE | 2017-08-19 06:16 | NUR ---
ACCU CHECK: BLOOD SUGAR CHECKED AND REVEAL 107, NO INSULIN COVERAGE PER MD, CRANBERRY JUICE PROVIDED TO THE PT, WILL MONITOR PT FOR S/S OF HYPOGLYCEMIA
--- NOTE | 2017-08-19 06:43 | NUR ---
RN CLOSING NOTES: PT IN BED, AWAKE, REMAINS A/O X2, ON 2L VIA NC RESPIRATION EVEN AND UNLABORED, RCW HD CATH REMAINS IN PLACED, DRESSING C/D/I. RFA IV ACCESS REMAINS PATENT AND FLUSHING WELL, NS AT TKO. OVERALL, NO BLOOD TRANSFUSION REACTION NOTED. BLE OFFLOADED. VS REMAINS STABLE, NEEDS ATTENDED. WILL ENDORSE TO DAY RN FOR JIMBO.
[2017-08-19 06:54] LABS: BASOPHILS # (AUTO) 0.1 /CMM (0.0-0.2); BASOPHILS % (AUTO) 0.5 % (0.0-2.0); EOSINOPHILS # (AUTO) 0.3 /CMM (0.0-0.7); EOSINOPHILS % (AUTO) 3.2 % (0.0-6.0); HEMATOCRIT 26 % (39-51); HEMOGLOBIN 8.3 g/dL (13.5-17.5); LYMPHOCYTES # (AUTO) 1.5 /CMM (0.8-4.8); LYMPHOCYTES % (AUTO) 13.9 % (20.0-44.0); MEAN CORPUSCULAR HEMOGLOBIN 29 PG (26.0-33.0); MEAN CORPUSCULAR HGB CONC 33 g/dl (31.0-36.0); MEAN CORPUSCULAR VOLUME 90 fL (80-96); MONOCYTES # (AUTO) 1.3 /CMM (0.1-1.30); MONOCYTES % (AUTO) 12.1 % (2.0-12.0); NEUTROPHILS # (AUTO) 7.8 /CMM (1.8-8.9); NEUTROPHILS % (AUTO) 70.3 % (43.0-81.0); PLATELET COUNT (AUTO) 350 /CMM (150-450); RDW COEFFICIENT OF VARIATION 14.4 (11.5-15.0); RED BLOOD CELL COUNT(AUTO) 2.86 MIL/uL (4.5-6.0); WHITE BLOOD COUNT (AUTO) 11.1 K/uL (4.3-11.0)
[2017-08-19 07:21] LABS: CALCIUM, SERUM 7.7 mg/dL (8.5-10.1); CREATININE 4.6 mg/dL (0.6-1.3); MAGNESIUM 2.1 mg/dL (1.8-2.4); PHOSPHORUS 5.2 mg/dL (2.5-4.9); POTASSIUM 4.1 mmol/L (3.5-5.1)
--- NOTE | 2017-08-19 07:41 | NUR ---
MS RN: INITIAL NOTE RECEIVED PT A/OX2. ON 2L NC SATING AT 94%. NO DISTRESS NOTED. NO PAIN NOTED. NO SOB NOTED. DÍAZ CATH IN PLACE. PATENT AND DRAINING. ON BEDREST AND TURNED/ REPOSITIONED Q 2HOURS. R FA #22 IV. R CW DIALYSIS CATH. SITE CLEAR AND DRESSING INTACT. RESTING COMFORTABLY IN BED. CALL LIGHT WITHIN REACH.
[2017-08-19] MEDS ORDERED: VIT B CMPLX 3/FA/VIT C/BIOTIN 1 TAB TABLET PO SCH (09:00)
[2017-08-19] MEDS: hydrALAZINE HCL 50 MG TABLET PO SCH ×2 (09:00→12:06)
[2017-08-19] MEDS: CARVEDILOL 12.5 MG TABLET PO SCH (09:00)
[2017-08-19] MEDS ORDERED: RENAL NOVASOURCE (8OZ) 1 EA BOX PO SCH (09:00)
[2017-08-19] MEDS: AMLODIPINE BESYLATE 10 MG TABLET PO SCH (09:00)
[2017-08-19] MEDS: MEROPENEM 500 MG in IV NS 0.9% 50 ML IV SCH (09:11)
[2017-08-19] MEDS: LACTOBACILLUS RHAMNOSUS GG 1 EACH CAP.SPRINK PO SCH (09:11)
[2017-08-19] MEDS: ASPIRIN EC 81 MG TABLET.DR PO SCH (09:11)
[2017-08-19] MEDS: FLUCONAZOLE (100 MG) 100 MG TABLET PO SCH (09:12)
[2017-08-19] MEDS: CLONIDINE HCL 0.1 MG TABLET PO SCH (09:12)
[2017-08-19] MEDS: FUROSEMIDE 40 MG TABLET PO SCH (09:12)
[2017-08-19] MEDS: ATORVASTATIN 10 MG TABLET PO SCH (09:12)
[2017-08-19] MEDS: CADEXOMER IODINE 40 GM TUBE TP SCH (09:13)
[2017-08-19] MEDS: HYDROGEL DRESSING 90 GM TUBE TP SCH (09:13)
[2017-08-19] MEDS: Z GUARD REMEDY 2 OZ OINT TP SCH (09:14)
[2017-08-19] MEDS: HEPARIN SODIUM, PORCINE 5000 UNITS/1 ML VIAL SQ SCH (09:16)
[2017-08-19] MEDS ORDERED: INSU100I19 SQ (09:53)
[2017-08-19] MEDS ORDERED: SULF1TAB48 PO (09:54)
--- NOTE | 2017-08-19 10:32 | NUR ---
DÍAZ CATH REMOVED PER MD JALLOH ORDER. WATCHING FOR URINARY RETENTION BEFORE TRANSFER TO SNF. WOUND CARE DONE.
--- NOTE | 2017-08-19 14:22 | NUR ---
CALLED [facility]X FOR REPORT. LEFT MESSAGE WITH PAIRER INSPECTOR TO CALL BACK SO. NO CALL BACK YET.
--- NOTE | 2017-08-19 15:02 | NUR ---
MS RN: DISCHARGE NOTE PT D/C TO [facility] FOR CONTINUING CARE. PT A/OX2. TOOK ALL MEDICATIONS ON TIME. NO ADVERSE REACTIONS NOTED. NO PAIN NOTED. NO SOB NOTED. VS STABLE. BP 131/68, PULSE 64. CALLED [facility] X3 FOR REPORT. LEFT NAME AND MESSAGE. NO CALL BACK. EMT [facility] TAKING PT TO FACILITY. ALL INFORMATION PROVIDED TO EMT AND D/C PAPERWORK GIVEN FOR [facility]. SUHAIL NOTIFIED OF TRANSFER. DÍAZ CATH REMOVED PER MD ORDER. NO URINE YET. PT FEELING THE URGE TO URINATE. EXPLAINED TO MONITOR FOR URINARY RETENTION AT [facility]. WOUND CARE DONE. PICTURES TAKEN OF WOUNDS AND PLACED IN FOLDER. R FA IV REMOVED. SITE CLEAR. NO REDNESS NOTED. R CW DIALYSIS CATH IN PLACE AND DRESSING INTACT. ALL VALUABLES ACCOUNTED FOR. ALL DISCHARGE PAPERWORK SIGNED BY 2 NURSES DUE TO ALTERED MENTAL STATUS OF PT.
== END 2017-08-19 14:57 | DRG 720 ==
LOC: ER 20:23 → TELE 22:59 → MED 08-14 11:00
PROVIDERS: ADMIT Internal Medicine; ATTEND Internal Medicine
PROC: 5A1D70Z Performance of Urinary Filtration, Intermittent, Less than 6 Hours Per Day (ICD-10-PCS; principal; 2017-08-14)
PROC: 30233N1 Transfusion of Nonautologous Red Blood Cells into Peripheral Vein, Percutaneous Approach (ICD-10-PCS; 2017-08-19)
DX: A41.9 Sepsis, unspecified organism (principal); I13.2 Hypertensive heart and chronic kidney disease with heart failure and with stage 5 chronic kidney disease, or end stage renal disease; G93.41 Metabolic encephalopathy; E11.22 Type 2 diabetes mellitus with diabetic chronic kidney disease; N18.6 End stage renal disease; B37.49 Other urogenital candidiasis; D64.9 Anemia, unspecified; E11.621 Type 2 diabetes mellitus with foot ulcer; Z99.2 Dependence on renal dialysis; I25.10 Atherosclerotic heart disease of native coronary artery without angina pectoris; Z86.73 Personal history of transient ischemic attack (TIA), and cerebral infarction without residual deficits; Z88.0 Allergy status to penicillin; E78.5 Hyperlipidemia, unspecified; R65.20 Severe sepsis without septic shock; E83.9 Disorder of mineral metabolism, unspecified; I25.2 Old myocardial infarction; Z79.4 Long term (current) use of insulin; Z79.899 Other long term (current) drug therapy; L97.519 Non-pressure chronic ulcer of other part of right foot with unspecified severity; L97.529 Non-pressure chronic ulcer of other part of left foot with unspecified severity; I50.32 Chronic diastolic (congestive) heart failure
CPT/HCPCS: 36415; 71010-TC; 80048-TC; 80076-TC; 80202-TC; 81000-TC; 82962-TC; 83605-TC; 83735-TC; 84100-TC; 84484-TC; 85025-TC; 85730-TC; 86850-TC; 86921-TC; 87040-TC; 87081-TC; 87086-TC; 87400; 90935-TC; 97110-TC; A4216; A4606; A6248; A6402; J0713; J0885; J1644; J1815; J2185; J3370; J7050; J7060; P9016-BL; Z7610